=== PATIENT | male | born 1960 | race Caucasian/White ===

== ENCOUNTER 2017-11-21 12:22 | Observation (INO) ==
[2017-11-21] MEDS ORDERED: Nitroglycerin 0.4 MG TAB.SUBL SL ONE (12:32)
[2017-11-21] MEDS ORDERED: Aspirin 81 MG TAB.CHEW PO ONE (12:32)
--- NOTE | 2017-11-21 12:38 | Emergency Department Note ---
Disposition Clinical Impression: Chest pain, rule out acute myocardial infarction Disposition: Admitted As Inpatient Condition: Good Referrals: Edilma Santana CNP [Primary Care Provider] - Time of Disposition: 13:59 General Adult HPI - General Stated complaint: C/P & SOB Time Seen by Provider: 11/21/17 12:24 Source: patient Limitations: no limitations Nursing Notes Reviewed: Yes Vital Signs Reviewed: Yes - History of Present Illness HPI Narrative: Patient is a 49-year-old male that since the emergency department for chest pain. He states that he has been having chest pain for 1-1/2 weeks intermittently but had an episode last night and then again today while he was at work and states today he began to go into his jaw and into his left arm. States it has become nauseated and diaphoretic with his chest pain. States that he has a history of cardiac disease and has had had 2 stents placed 8 years ago patient also reports some shortness of breath with this episode. He states this feels very similar to previous cardiac events. Pain Scale: 3 - Related Data Home Medications Medication Instructions Recorded Confirmed amLODIPine [Norvasc] 2.5 mg PO DAILY 04/28/16 11/21/17 Sildenafil Citrate [Viagra] 100 mg PO AD PRN 04/07/17 11/21/17 Ubidecarenone [Co Q-10] 10 mg PO DAILY 04/07/17 11/21/17 Valacyclovir HCl [Valtrex] 2,000 mg PO Q12H PRN 04/07/17 11/21/17 Zolpidem [Ambien] 10 mg PO HS 04/07/17 11/21/17 DULoxetine [Cymbalta] 30 mg PO DAILY 11/21/17 11/21/17 Ezetimibe [Ezetimibe] 10 mg PO DAILY 11/21/17 11/21/17 Pantoprazole Sodium [Protonix] 40 mg PO DAILY 11/21/17 11/21/17 Previous Rx's Medication Instructions Recorded Aspirin 81 mg PO DAILY 30 Days tab.chew 06/05/16 Allergies Allergy/AdvReac Type Severity Reaction Status Date / Time chlorpheniramine AdvReac Hives Verified 11/07/17 15:50 [From Ornade] Nortriptyline [From Pamelor] AdvReac Palpitation Verified 11/07/17 15:50 s phenylpropanolamine AdvReac Hives Verified 11/07/17 15:50 [From Ornade] All systems ED: reviewed and negative except as stated. Cardiovascular: Reports: chest pain Respiratory: Reports: dyspnea Past Medical History - Past Medical History Medical history: Reports: non-contributory Surgical history: Reports: non-contributory, appendectomy, herniorrhaphy, other Psychiatric history: Reports: anxiety, depression - Social History Smoking Status: Never smoker Smokeless Tobacco Status: No Alcohol use: Reports: none Drug use: Reports: none Physical Exam - General Limitations: no limitations General appearance: alert, in no apparent distress - Head Head exam: atraumatic, normocephalic - Eye Eye exam: Present: normal appearance, EOMI - Neck Neck exam: Present: normal inspection, full ROM, trachea midline - Respiratory Respiratory exam: Present: normal lung sounds bilaterally. Absent: respiratory distress, wheezes - Cardiovascular Cardiovascular exam: Present: regular rate, normal rhythm, normal heart sounds, +S1, +S2 - Abdominal Exam Abdominal exam: Present: soft, Non-Tender, normal bowel sounds - Neurological Exam Neurological exam: Present: alert, oriented X3 - Psychiatric Psychiatric exam: Present: normal affect, normal mood - Skin Skin exam: Present: warm, dry, intact Course - Reevaluation(s) Reevaluation #1: The patient had recurrent chest pain after being given sublingual nitroglycerin. We will start a nitro drip on this patient. Time: 13:42 - Consultations Consultation #1: A call and spoke with the Dr. Mooney the on-call tank truck driver and informed her of this patient and his current symptoms. She valorie recommended against using heparin at this time due to their being no EKG changes or elevation in troponin. She stated that if there would end up being an EKG changes or elevation in troponin and we could start heparin. They have agreed with the management of starting a nitro drip. They stated they would see this patient in consult. Time: 13:46 Vital Signs Temperature 97.5 F L 11/21/17 12:32 Pulse Rate 87 11/21/17 12:32 Respiratory Rate 12 11/21/17 12:32 Blood Pressure 160/105 11/21/17 12:32 O2 Sat by Pulse Oximetry 99 11/21/17 12:32 Temperature 97.5 F L 11/21/17 12:32 Pulse Rate 87 11/21/17 12:32 Respiratory Rate 12 11/21/17 12:32 Blood Pressure 107/72 11/21/17 12:51 O2 Sat by Pulse Oximetry 99 11/21/17 12:32 Oxygen Delivery Oxygen Delivery Room Air Medical Decision Making - MDM Narrative Medical decision making narrative: Due the patient having chest pain we will do a CBC, BMP, troponin, chest x-ray EKG. Patient will also have a trial of nitroglycerin. Patient's chest pain improved with nitroglycerin however the pain returns we started the patient on a nitro drip. EKG showed no acute changes. The chest x-ray showed no acute cardial palmar process. The initial troponin was negative. The remainder of the patient's labs were unremarkable this time. Due to the patient's previous cardiac history and presenting symptoms and patient will need to be admitted to the hospital for further evaluation and management. I called and spoke to the hospitalist and they agreed to consult on this patient in the hospital. They recommended against starting a heparin drip at this time. I will call and speak with the hospitalist for admission to the hospital. I called spoke to the hospice and accepted the patient to their service. Patient will be admitted to the hospital for further evaluation and management this time. - Medical Records Medical records reviewed: Yes I reviewed the patient's medical records. - Lab Data Lab results reviewed: Yes I reviewed the patient's lab results. Result diagrams: 11/21/17 12:40 11/21/17 12:40 Lab Results 11/21/17 11/21/17 11/21/17 Range/Units 12:40 12:40 12:40 WBC 8.9 (4.3-11.1) K/mcL RBC 5.03 (4.19-5.50) M/mcL Hgb 15.6 (12.9-16.9) g/dL Hct 46.9 (37.5-50.1) % MCV 93.2 (83.0-100.0) fL MCH 31.0 (28.0-33.3) pg MCHC 33.3 (31.6-35.5) g/dL RDW 12.7 (11.5-14.5) % Plt Count 265 (140-400) K/mcL MPV 9.7 (9.4-12.4) fL Immature Gran % 0.3 (0-4) % Seg Neutrophils % 38.7 % Lymphocytes % 47.8 % Monocytes % 9.5 % Eosinophils % 3.2 % Basophils % 0.5 % Neutrophils # 3.4 (1.6-8.9) K/mcL Lymphocytes # 4.2 (0.6-4.6) K/mcL Monocytes # 0.8 (0.0-1.3) K/mcL Eosinophils # 0.3 (0.0-0.6) K/mcL Basophils # 0.0 (0.0-0.2) K/mcL PT 11.7 (9.4-12.1) Seconds INR 1.1 APTT 35.9 (26.0-36.0) Seconds Sodium (136-145) mEq/L Potassium (3.5-5.1) mEq/L Chloride (98-107) mEq/L Carbon Dioxide (23-29) mEq/L BUN (6-20) mg/dL Creatinine (0.70-1.30) mg/dL Est GFR ( Amer) (> 60) Est GFR (Non-Af Amer) (> 60) BUN/Creatinine Ratio (6-26) Glucose (70-105) mg/dL Calculated Osmolality (280-300) Calcium (8.6-10.3) mg/dL Troponin I (< 0.04) ng/mL B-Natriuretic Peptide 11 (Less than 100) pg/mL 11/21/17 11/21/17 Range/Units 12:40 12:40 WBC (4.3-11.1) K/mcL RBC (4.19-5.50) M/mcL Hgb (12.9-16.9) g/dL Hct (37.5-50.1) % MCV (83.0-100.0) fL MCH (28.0-33.3) pg MCHC (31.6-35.5) g/dL RDW (11.5-14.5) % Plt Count (140-400) K/mcL MPV (9.4-12.4) fL Immature Gran % (0-4) % Seg Neutrophils % % Lymphocytes % % Monocytes % % Eosinophils % % Basophils % % Neutrophils # (1.6-8.9) K/mcL Lymphocytes # (0.6-4.6) K/mcL Monocytes # (0.0-1.3) K/mcL Eosinophils # (0.0-0.6) K/mcL Basophils # (0.0-0.2) K/mcL PT (9.4-12.1) Seconds INR APTT (26.0-36.0) Seconds Sodium 137 (136-145) mEq/L Potassium 4.1 (3.5-5.1) mEq/L Chloride 100 (98-107) mEq/L Carbon Dioxide 28 (23-29) mEq/L BUN 11 (6-20) mg/dL Creatinine 1.10 (0.70-1.30) mg/dL Est GFR ( Amer) > 60 (> 60) Est GFR (Non-Af Amer) > 60 (> 60) BUN/Creatinine Ratio 10 (6-26) Glucose 112 H (70-105) mg/dL Calculated Osmolality 284 (280-300) Calcium 9.4 (8.6-10.3) mg/dL Troponin I < 0.03 (< 0.04) ng/mL B-Natriuretic Peptide (Less than 100) pg/mL - Radiology Data Radiology results reviewed: Yes I reviewed the patient's radiology results. Chest X-Ray 11/21/17 12:32 IMPRESSION: No acute cardiopulmonary process. D/ / 11/21/2017 13:07:48 Vinicio Sweeney MD / Rina Carter Interpreting Provider: Vinicio Sweeney MD - EKG Data EKG #1 EKG attestation: Yes I reviewed and interpreted this EKG. EKG results narrative: EKG showed sinus rhythm at a rate of 83 bpm, LA interval of 180, QRS duration of 92, QTC of 389. There is occasional PVCs but no STEMI noted on this EKG. This is compared to previous EKG on 06/04/16 which showed a sinus rhythm at a rate of 71 bpm. There is no acute changes noted between these 2 EKGs other than the occasional PVC. EKG #2 EKG attestation: Yes I reviewed and interpreted this EKG. EKG results narrative: Second EKG at 1314 showed a sinus rhythm with occasional PVCs. Rate of 82 bpm, LA interval of 184, QRS duration of 89, QTC of 411 with a normal axis. There is no acute changes noted from review his EKG. EKG #3 EKG attestation: Yes I reviewed and interpreted this EKG. EKG results narrative: EKG at 1339 shows sinus rhythm at a rate of 71 bpm, LA interval of 203, QRS duration of 77, QTC of 383. There are no PVCs noted on this EKG otherwise there is no acute changes noted between previous EKG. Critical Care Time Critical Care Time: Yes Total Critical Care Time: 35 Attestation: Critical care performed: Time is exclusive of separately billable procedures. Time includes: direct patient care, patient reassessment, coordination of patient care, interpretation of data (laboratory data, radiology data, and respiratory data), review of patient's medical records, medical consultation and documentation of patient care. Procedures included in critical care time: Procedures excluded from critical care time: Attestation Statement - Attestation Attestation: I, Meet Ramos DO, examined this patient [id number] and my medical decision-making was reviewed with Dr. Jonathon Araya, Resident Physician. I agree with the documented findings, disposition and treatment plan as described except to the extent set forth below. Please see my progress notes for details. 57-year-old male presents to emergency room with complaint of chest pain. Vital signs on presentation were stable. Patient is describing anginal equivalent. He has had symptoms like this in the past and he required catheterization. Initial EKG did not show any acute signs of myocardial infarction. Nitroglycerin trial is completed inpatient complete resolution of symptoms after 2 nitroglycerin. Repeat EKG is collected 30 minutes after arrival and again was normal in comparison to the previous. Patient had reemergence of the chest pain approximately 25 minutes after nitroglycerin was given. Patella determined nitric concern drip will be started. Repeat EKG is culture that time and again was normal. Consultation postop the on-call tank truck driver further recommendations. They recommended holding on heparin at this time but continuing with the nitroglycerin glycerin treatment. Patient's physical exam is otherwise unremarkable. Vital signs stable his symptoms of uncontrolled. Lungs are clear heart is regular. Abdomen is soft. Patient is alert oriented (sentences. Patient will be admitted for definitive evaluation of the echocardiogram, stress test, catheterization for the symptoms. Concern is noted that this is unstable angina based on the presentation symptoms and resolution with the appropriate medications. Patient will be discussed with the hospitalist for admission this time. Approximately 35 minutes of critical care participation treatment course. No other concerns or issues noted this time. Admission process to be established. See detailed recommendations the physical exam, medical intervention, medical decision-making and disposition and the resident physician's note [id number] Symptoms are controlled this time and nitroglycerin. No pain at the time of admission
[2017-11-21] MEDS ORDERED: *HR* Heparin 5,000 UNIT/ML VIAL IVP ONE (12:54)
[2017-11-21] MEDS ORDERED: *HR* Heparin 5,000 UNIT/ML VIAL IVP PRN ×2 (12:54)
[2017-11-21] MEDS ORDERED: Heparin 25,000 UNIT/500 ML D5W 25,000 UNIT/500 ML BAG IVC SCH (13:00)
[2017-11-21 13:01] LABS: Basophils % 0.5 %; Eosinophils # 0.3 K/mcL (0.0-0.6); Eosinophils % 3.2 %; Hematocrit 46.9 % (37.5-50.1); Hemoglobin 15.6 g/dL (12.9-16.9); Immature Granulocytes % 0.3 % (0-4); Lymphocytes # 4.2 K/mcL (0.6-4.6); Lymphocytes % 47.8 %; Mean Corpuscular HGB Conc 33.3 g/dL (31.6-35.5); Mean Corpuscular Volume 93.2 fL (83.0-100.0); Mean Platelet Volume 9.7 fL (9.4-12.4); Monocytes # 0.8 K/mcL (0.0-1.3); Monocytes % 9.5 %; Neutrophils # 3.4 K/mcL (1.6-8.9); Platelet Count 265 K/mcL (140-400); Red Blood Count 5.03 M/mcL (4.19-5.50); Red Cell Distribution Width 12.7 % (11.5-14.5); Segmented Neutrophils % 38.7 %
[2017-11-21 13:07] LABS: INR 1.1; Prothrombin Time 11.7 Seconds (9.4-12.1)
[2017-11-21 13:10] LABS: Activated Partial Thrombo Time 35.9 Seconds (26.0-36.0)
[2017-11-21] MEDS ORDERED: Nitroglycerin 1 INCH/GM PACKET TP ONE (13:18)
[2017-11-21 13:22] LABS: BUN/Creatinine Ratio 10 (6-26); Blood Urea Nitrogen 11 mg/dL (6-20); Calcium 9.4 mg/dL (8.6-10.3); Carbon Dioxide 28 mEq/L (23-29); Chloride 100 mEq/L (98-107); Glucose 112 mg/dL (70-105); Osmolality,Calculated 284 (280-300); Potassium 4.1 mEq/L (3.5-5.1); Sodium 137 mEq/L (136-145); eGFR For African Americans > 60 (> 60); eGFR For Non-African Americans > 60 (> 60)
[2017-11-21] MEDS ORDERED: Nitroglycerin 25 MG/250 ML INFUS..BTL IVC SCH (13:45)
[2017-11-21] MEDS ORDERED: *HR* Enoxaparin 80 MG/0.8 ML SYRINGE SQ ONE (14:35)
--- NOTE | 2017-11-21 14:36 | Event Note ---
Date of Encounter: 11/21/17 Time of Encounter: 14:35 Patient seen and examined with VP ANALYSIS. Unstable angina. Anti-ischemic medications. Appreciate cardiology input
[2017-11-21] MEDS ORDERED: Acetaminophen 325 MG TABLET PO PRN (14:47)
[2017-11-21] MEDS ORDERED: Ondansetron 4 MG/2 ML VIAL IVP PRN (14:47)
[2017-11-21] MEDS ORDERED: Naloxone 0.4 MG/ML INJ IVP PRN (14:47)
--- NOTE | 2017-11-21 15:01 | Internal Med History&Physical ---
Date of Encounter: 11/21/17 Time of Encounter: 14:59 Assessment and Plan (1) Unstable angina Current visit: No Status: Acute 1 patient has been experiencing intermittent chest pain off and on for past 2 weeks today he began to express chest pain radiating to his left arm and jaw. Associated symptoms of nausea diaphoresis and shortness of breath. He does have a past history of cardiac disease he did have 2 stents 2011 to the right coronary artery and first obtuse marginal branch of the circumflex artery in 2010. Repeat catheterization was performed in December 2012 which demonstrated patent stents. He did undergo a nuclear cardiac stress test in 2015 which was negative for any ischemia or infarct Echo performed 2016: VEF 60%. Normal left ventricular size and systolic function. There is evidence of moderate diastolic dysfunction of the left ventricle. Normal right ventricular size and function. No significant valvular dysfunction. IVC not well visualized for estimate of RVSP. No evidence for pulmonary hypertension by TR gradient, 18 mmHg. 2 First set of troponins are negative we will continue to trend 3 continue with nitroglycerin 4 we will hold on heparin for now unless troponin elevates or any changes in EKG 5 cardiology has been consulted-ER physician did speak with Dr. Mooney 6 continuous cardiac monitoring 7 continue with aspirin and Ezetimibe-patient does not tolerate statins-we will check lipid profile 8 patient unable to take metoprolol causes shortness of breath 9 nothing by mouth after midnight (2) GERD (gastroesophageal reflux disease) Current visit: No Status: Chronic Prilosec Qualifiers: Esophagitis presence: esophagitis presence not specified Qualified Code(s) : K21.9 - Gastro-esophageal reflux disease without esophagitis (3) Hypertension Current visit: No Status: Chronic Presently controlled we will continue with nitroglycerin, Norvasc Qualifiers: Hypertension type: essential hypertension Qualified Code(s): I10 - Essential (primary) hypertension (4) DVT prophylaxis Current visit: Yes Status: Acute [facility] Internal Medicine - H&P: HPI Chief complaint: CP Admitted From: Emergency Dept Plans for Post Hospital Care: Home History of present illness: Mr. Martinez is a 57 year old male past medical history of GERD GI bleed hyperlipidemia hypertension CAD with stents. According to the patient he has been experiencing intermittent chest pain for the past 2 weeks however he did have an episode of midsternal nonradiating chest pain last night again today while he was at work however at this time it radiated to his jaw and into his left arm. He does have associated symptoms of shortness of breath nausea and diaphoresis. He does have a past history of cardiac disease he did have 2 stents 2011 He presented to the ER with the above complaints he was given 2 nitroglycerin which did relieve his pain however pain returned after each nitroglycerin. He was initiated on nitroglycerin drip. Lab work was unremarkable troponin was negative EKG with no ST-T wave abnormalities. Ear physician did speak with cardiology who advised not to initiate heparin at this time since there is no changes in EKG or elevation in troponin. Patient has been admitted for further workup evaluation. Presently patient denies any chest pain and is hemodynamically stable Past Med Surg Social Fam HX - Past Medical History Medical history: non-contributory Psychiatric history: anxiety, depression - Past Surgical History Surgical History: non-contributory, appendectomy, herniorrhaphy, other - Social History Smoking Status: Never smoker Smokeless Tobacco Status: No Alcohol use: none Drug use: none - Family History Father Living Status: Hx Family Cardiac Disorders: Yes ([place]) Internal Medicine - H&P: Meds amLODIPine [Norvasc] 2.5 mg PO DAILY 04/28/16 [History] Aspirin 81 mg PO DAILY 30 Days tab.chew 06/05/16 [Rx] Sildenafil Citrate [Viagra] 100 mg PO AD PRN 04/07/17 [History] Ubidecarenone [Co Q-10] 10 mg PO DAILY 04/07/17 [History] Valacyclovir HCl [Valtrex] 2,000 mg PO Q12H PRN 04/07/17 [History] Zolpidem [Ambien] 10 mg PO HS 04/07/17 [History] DULoxetine [Cymbalta] 30 mg PO DAILY 11/21/17 [History] Ezetimibe [Ezetimibe] 10 mg PO DAILY 11/21/17 [History] Pantoprazole Sodium [Protonix] 40 mg PO DAILY 11/21/17 [History] 3 Allergy/AdvReac Type Severity Reaction Status Date / Time chlorpheniramine AdvReac Hives Verified 11/07/17 15:50 [From Ornade] Nortriptyline [From Pamelor] AdvReac Palpitation Verified 11/07/17 15:50 s phenylpropanolamine AdvReac Hives Verified 11/07/17 15:50 [From Ornade] All Systems PM: A 10-system review of systems was performed and is negative for pertinent findings except as documented above in the HPI. - Constitutional Constitutional: no chills, no fever(s), no night sweats - EENT Eyes: no change in vision, no discharge, no pain, no photophobia Ears: no ear discharge, no ear pain, no tinnitus Nose, mouth and throat: no dysphagia, no nasal discharge, no neck pain, no sore throat - Cardiovascular Cardiovascular ROS IM: chest pain, dyspnea - Respiratory Respiratory: dyspnea on exertion - Gastrointestinal Gastrointestinal: nausea - Musculoskeletal Musculoskeletal ROS IM: no numbness, no tingling - Integumentary Integumentary IM: no rash, no unusual bruising - Neurological Neurological ROS: no confusion, no convulsions, no focal weakness, no numbness, no tingling, no tremor(s) - Hematologic/Lymphatic Hematologic/Lymphatic: no easy bruising - Constitutional Vitals: Temp Pulse Resp BP Pulse Ox 97.5 F L 87 14 120/81 99 11/21/17 12:32 11/21/17 12:32 11/21/17 14:54 11/21/17 14:54 11/21/17 12:32 General appearance: Present: A&O X 3 - Head Head exam: Present: atraumatic, normocephalic - Eye Eye exam: Present: PERRL, conjuntiva pink, sclera anicteric Pupils: Present: PERRL - Neck Neck exam general surgery: Present: supple, trachea midline. Absent: lymphadenopathy - Respiratory Respiratory exam: Present: CTAB. Absent: accessory muscle use, rales, rhonchi, wheezes - Cardiovascular Cardiovascular exam: Present: RRR, +S1, +S2. Absent: diastolic murmur, gallop, rubs, systolic murmur - GI/Abdominal GI/Abdominal exam: Present: normal bowel sounds, soft, no peritoneal signs. Absent: distended, tenderness - Extremities Exam Extremities exam: Present: warm, radial pulses palpable and symmetrical. Absent : calf tenderness, cyanotic, pedal edema - Neurological Exam Neurological exam: Present: CN II-XII intact, oriented X3, no focal deficits. Absent: pronater drift, facial droop, speech deficit - Skin Skin exam: Present: dry, intact Internal Med - H&P Results - Labs CBC & Chem 7: 11/21/17 12:40 11/21/17 12:40
[2017-11-21] MEDS ORDERED: Pantoprazole 40 MG VIAL IVP ONE (22:28)
[2017-11-22 00:32] LABS: Basophils # 0.1 K/mcL (0.0-0.2); Basophils % 0.8 %; Eosinophils # 0.3 K/mcL (0.0-0.6); Eosinophils % 3.8 %; Hematocrit 45.1 % (37.5-50.1); Immature Granulocytes % 0.3 % (0-4); Lymphocytes # 3.3 K/mcL (0.6-4.6); Lymphocytes % 51.2 %; Mean Corpuscular HGB Conc 33.3 g/dL (31.6-35.5); Mean Corpuscular Hemoglobin 30.9 pg (28.0-33.3); Mean Corpuscular Volume 92.8 fL (83.0-100.0); Mean Platelet Volume 9.8 fL (9.4-12.4); Monocytes # 0.7 K/mcL (0.0-1.3); Monocytes % 10.6 %; Neutrophils # 2.2 K/mcL (1.6-8.9); Platelet Count 241 K/mcL (140-400); Red Blood Count 4.86 M/mcL (4.19-5.50); Red Cell Distribution Width 12.8 % (11.5-14.5); Segmented Neutrophils % 33.3 %
[2017-11-22 00:47] LABS: BUN/Creatinine Ratio 11 (6-26); Blood Urea Nitrogen 13 mg/dL (6-20); Calcium 9.2 mg/dL (8.6-10.3); Carbon Dioxide 30 mEq/L (23-29); Chloride 103 mEq/L (98-107); Glucose 108 mg/dL (70-105); Osmolality,Calculated 287 (280-300); Potassium 4.1 mEq/L (3.5-5.1); Sodium 138 mEq/L (136-145); eGFR For African Americans > 60 (> 60); eGFR For Non-African Americans > 60 (> 60)
[2017-11-22] MEDS ORDERED: (Ezetimibe [Ezetimibe] 10 MG) PO SCH (09:00)
[2017-11-22] MEDS: Aspirin 81 MG TAB.CHEW PO SCH (10:16)
--- NOTE | 2017-11-22 10:27 | Cardiology Consult Note ---
<Radha Paulson Stephanie - Last Filed: 11/22/17 10:36> Date of Encounter: 11/22/17 Time of Encounter: 10:00 Assessment and Plan (1) Unstable angina Current Visit: Yes Status: Acute Reports symptoms concerning for unstable angina for the past 2-3 months. Hx of CAD s/p PCI in 2010. Troponin negative. No ST/T wave changes noted on ECG. Presented with chest discomfort, improved with NTG tabs, pain recurred and patient was started on NTG gtt. Negative nuclear exercise stress test in 2015. TTE with normal LVEF June 2016. Recommend LH with possible PCI; alternatives, risks, and benefits discussed, he is agreeable to proceed. Continue asa. Intolerant to statin and betablocker. Pending outpt approval for repatha. Further recommendations to follow. (2) CAD (coronary artery disease), [place] coronary artery Current Visit: No Status: Chronic Hx of CAD s/p PCI. Most recent LHC 2012 demonstrated patent stents and otherwise mild, non- obstructive CAD. Exercise nuclear stress test 2015 negative for ischemia or infarct. EF preserved per TTE. Continue asa. Reportedly intolerant to betablocker (dyspnea). Statin intolerant- --pending repatha initiation as outpt if insurance will approve. Plan as above. Qualifiers: [place] vs. transplanted heart: [place] heart Associated angina: with unstable angina Qualified Code(s): I25.110 - Atherosclerotic heart disease of [place] coronary artery with unstable angina pectoris Discussion w patient/family: The assessment and plan as outlined above was discussed with the patient and/or family members who expressed understanding and agreement. All questions were answered. Thank you for involving us in the care of your patient. Please call with any questions. The patient will be discussed and reviewed with Dr. Long; changes to be made accordingly. History of Present Illness Consult date: 11/22/17 Requesting physician: Arabella Richards Consult reason: Chest pain Chief complaint: Chest pain History of present illness: Mr. Martinez is a 57 year old male with PMHx significant for CAD s/p PCI, GERD, and HTN who presented to the ED with complaints of chest pressure and shortness of breath. Symptoms worsen with exertion and improve with rest. Reports shortness of breath with minimal exertion for at least the past 2-3 months. Associated symptoms include significant fatigue. Reports pain improved with NTG tabs in the ED however recurred and then was started on IV NTG gtt. Reports similar presentation with prior NV. Troponin negative x3. No ST/T wave changes noted per ECG. Prior CV testing: Exercise nuclear 06/05/16: perfusion imaging negative for ischemia or infarct, exercise ECG negative for ischemia, normal hemodynamic response, chest tightness with peak exercise, gated EF=64% TTE 06/05/16: EF 60%, moderate LVDD, no significant valvular dysfunction, normal wall motion [facility] 12/2012: patent stent to OM1 and mRCA; otherwise mild, non-obstructive CAD (30% pLAD, 30% mLCx). Past Med Surg Social Fam HX - Past Medical History Attestation: Yes The following information was validated with the patient. Source: patient Medical history: coronary artery disease, GERD, hypertension Psychiatric history: anxiety, depression - Past Surgical History Surgical History: non-contributory, angioplasty/stent, appendectomy, herniorrhaphy - Social History Smoking Status: Never smoker Smokeless Tobacco Status: No Alcohol use: none Drug use: none - Family History Mother Living Status: Age at : 97 Hx Family Cardiac Disorders: Yes (3-4 stents placed due to some blockage, placed late into her life) Hx Family Respiratory Disorders: No Hx Family Cancer: No Hx Family GI Disorders: No Hx Family Genitourinary Disorders: No Hx Family Endocrine Disorder: No Hx Family Musculoskeletal Disorders: No Hx Family Neuromuscular Disorders: No Hx Family Neurologic Disorders: No Hx Family HEENT Disorders: No Hx Family Autoimmune Disorders: No Hx Family Reproductive Disorders: No Hx Family Psychosocial Disorders: No Father Living Status: Age at : 70 Cause of : Heart attack Hx Family Cardiac Disorders: Yes (NV) Hx Family Respiratory Disorders: No Hx Family Cancer: No Hx Family GI Disorders: Yes (Stomach issues) Hx Family Genitourinary Disorders: No Hx Family Endocrine Disorder: No Hx Family Musculoskeletal Disorders: No Hx Family Neuromuscular Disorders: No Hx Family Neurologic Disorders: No Hx Family HEENT Disorders: No Medications and Allergies amLODIPine [Norvasc] 2.5 mg PO DAILY 04/28/16 [History] Aspirin 81 mg PO DAILY 30 Days tab.chew 06/05/16 [Rx] Sildenafil Citrate [Viagra] 100 mg PO AD PRN 04/07/17 [History] Ubidecarenone [Co Q-10] 10 mg PO DAILY 04/07/17 [History] Valacyclovir HCl [Valtrex] 2,000 mg PO Q12H PRN 04/07/17 [History] Zolpidem [Ambien] 10 mg PO HS 04/07/17 [History] DULoxetine [Cymbalta] 30 mg PO DAILY 11/21/17 [History] Ezetimibe [Ezetimibe] 10 mg PO DAILY 11/21/17 [History] Pantoprazole Sodium [Protonix] 40 mg PO DAILY 11/21/17 [History] 3 Allergy/AdvReac Type Severity Reaction Status Date / Time chlorpheniramine AdvReac Hives Verified 11/07/17 15:50 [From Ornade] Nortriptyline [From Pamelor] AdvReac Palpitation Verified 11/07/17 15:50 s phenylpropanolamine AdvReac Hives Verified 11/07/17 15:50 [From Ornade] All Systems Review: A 10-system review of systems was performed and is negative for pertinent findings except as documented above in the HPI. - Cardiovascular Cardiovascular: as per HPI Physical Examination Vital Signs, Last 4 Hours Temp Pulse Resp BP Pulse Ox 11/22/17 06:38 97.7 F 62 14 134/81 98 General: Conversant, No Apparent Distress HEENT: Atraumatic, Normocephaly, Mucus Membranes Moist Neck: No JVD, Normal carotid pulses Cardiac: Reg Rate and Rhythm, Normal S1 and S2, No Murmur Lungs: Normal Breath Sounds, No Wheeze, Rales, Rhonchi Neuro: Alert and responsive, No focal deficits noted Abdomen: Soft, Non-Tender Skin: No rashes noted on visualized skin Musculoskeletal: No Chest Wall Tenderness Extremities: No Clubbing, No Cyanosis, No Edema, Normal Pulses Results 11/22/17 00:19 11/22/17 00:19 Lab Results 11/21/17 11/22/17 11/22/17 18:58 00:19 00:19 WBC 6.5 Hgb 15.0 Hct 45.1 Plt Count 241 Sodium Potassium Chloride Carbon Dioxide BUN Creatinine Glucose Calcium Troponin I < 0.03 < 0.03 11/22/17 00:19 WBC Hgb Hct Plt Count Sodium 138 Potassium 4.1 Chloride 103 Carbon Dioxide 30 H BUN 13 Creatinine 1.18 Glucose 108 H Calcium 9.2 Troponin I Active Medications Acetaminophen (Tylenol) 650 mg PO Q6HR PRN PRN Reason: Mild Pain (1-3) Stop: 05/23/18 14:48 Aspirin (Aspirin) 81 mg PO DAILY [facility] Stop: 05/24/18 09:01 Last Admin: 11/22/17 10:16 Dose: 81 mg Duloxetine HCl (Cymbalta) 30 mg PO DAILY [facility] Stop: 05/24/18 09:01 Last Admin: 11/22/17 10:16 Dose: 30 mg Nitroglycerin (Nitroglycerin Premix 25 Mg/250 Ml) 25 mg in 250 mls @ 3 mls/hr IVC .Q24H TORIBIO; 5 MCG/MIN PRN Reason: Protocol Stop: 05/23/18 13:46 Last Admin: 11/21/17 13:58 Dose: 5 mcg/min, 3 mls/hr Naloxone HCl (Narcan) 0.4 mg IVP Q2MIN PRN PRN Reason: Opioid Reversal Stop: 05/23/18 14:48 Omeprazole (Prilosec) 40 mg PO DAILY [facility] Stop: 05/24/18 09:01 Last Admin: 11/22/17 10:16 Dose: 40 mg Ondansetron HCl (Zofran) 4 mg IVP Q8HR PRN PRN Reason: Nausea And Vomiting Stop: 05/23/18 14:48 Pharmacy Profile Note (Patient Taking Own Medication) 0 each PO DAILY [facility] Stop: 05/24/18 09:01 Last Admin: 11/22/17 10:16 Dose: Not Given Zolpidem Tartrate (Ambien) 10 mg PO HS [facility] PRN Reason: Protocol Stop: 05/23/18 21:01 Last Admin: 11/21/17 22:41 Dose: 10 mg - Imaging and Cardiology Stress Test: report reviewed Echo: report reviewed Cardiac cath: report reviewed Other Results: 12 hour tele: avg HR=59 SR. PVCs. - EKG Interpretation EKG results cardiology: personally reviewed Consult Discharge Plan - Plan Referrals: Edilma Santana NETWORK DEVELOPMENT COORDINATOR [Primary Care Provider] - <Gustavo Long - Last Filed: 11/22/17 13:06> Date of Encounter: 11/22/17 - Attending Attestation I have personally performed a face to face evaluation on this patient. I have reviewed and agree with the care plan. History and Exam by me shows: Pt presents to ER with three day history of chest pain, mid epigastric, radiates into left jaw, provoked by exercise, relieved by rest, lasts ten to fifteen minutes, did not take ntg, associated with shortness of breath, relieved in ER with two sub lingual ntg and initiation of ntg drip. Pt reports pain is the same as he experienced before LHC/PCI. He can provoke the chest pain with exertion. IMP: 1. Chest pain consistent with previous anginal pain, now relieved, 2. CAD - previous LHC 2010, stent sites patent, unknown vessel, old records pending. 3. hypertension : adequate control on current meds. 4. hyperlipidemia - intolerate to three statins, fenofibrate, may be candidate for PCSK9 inhibitors. REC: Left heart cath possible, obtain old record, discussed risks and benefits, pt agrees to proceed. Assessment and Plan Discussion w patient/family: The assessment and plan as outlined above was discussed with the patient and/or family members who expressed understanding and agreement. All questions were answered. Thank you for involving us in the care of your patient. Please call with any questions. History of Present Illness History of present illness: Mr. Martinez is a 57 year old male All Systems Review: A 10-system review of systems was performed and is negative for pertinent findings except as documented above in the HPI. Physical Examination Vital Signs, Last 4 Hours Temp Pulse Resp BP Pulse Ox 11/22/17 10:38 97.8 F 65 14 124/90 94 Results 11/22/17 00:19 11/22/17 00:19 Lab Results 11/21/17 11/22/17 11/22/17 18:58 00:19 00:19 WBC 6.5 Hgb 15.0 Hct 45.1 Plt Count 241 Sodium Potassium Chloride Carbon Dioxide BUN Creatinine Glucose Calcium Troponin I < 0.03 < 0.03 11/22/17 00:19 WBC Hgb Hct Plt Count Sodium 138 Potassium 4.1 Chloride 103 Carbon Dioxide 30 H BUN 13 Creatinine 1.18 Glucose 108 H Calcium 9.2 Troponin I
--- NOTE | 2017-11-22 10:42 | Pre-Sedation Evaluation ---
Pre-sedation evaluation - Pre-sedation checklist Date of procedure: 11/22/17 Procedure: [facility] Recent Vitals: Last Vital Signs Temp 97.8 F 11/22/17 10:38 Pulse 65 11/22/17 10:38 Resp 14 11/22/17 10:38 BP 124/90 11/22/17 10:38 Pulse Ox 94 11/22/17 10:38 H&P (including ROS) documented in medical record: Yes Previous reaction to sedatives/anesthetics: No Dietary Status: NPO after Midnight Dentition: No loose teeth or bridges ASA Classification *see protocol: CLASS II-Mild systemic disease Plan of Care: Pt appropriate candidate for procedure/moderate/conscious sedation
--- NOTE | 2017-11-22 11:07 | Internal Med Progress Note ---
<Mil Pacheco - Last Filed: 11/22/17 17:42> Date of Encounter: 11/22/17 Time of Encounter: 11:05 - Assessment and plan (1) Unstable angina Current Visit: Yes Status: Acute Assessment and plan: - Patient described left chest pain with radiation to left arm and jaw at rest, relieved with nitroglycerin - Strong family history of coronary artery disease - Previous cardiac workup including left heart catheterization 2010 with placement of 2 stents - EKG demonstrating no acute changes, troponin trended and negative - Cardiology consulted and following, appreciate recommendations - Patient to undergo left heart catheterization this afternoon Plan - We will continue to monitor patient and await results of left heart catheterization - Continue beta tommy, aspirin, ezitimibe on discharge per cardiology (2) Chest pain Current Visit: Yes Status: Acute Assessment and plan: As above Qualifiers: Chest pain type: unspecified Qualified Code(s): R07.9 - Chest pain, unspecified (3) Hypertension Current Visit: Yes Status: Chronic Assessment and plan: Well controlled at this time at 134/81 Continue home meds Qualifiers: Hypertension type: essential hypertension Qualified Code(s): I10 - Essential (primary) hypertension (4) Dyslipidemia Current Visit: Yes Status: Chronic Assessment and plan: Patient is intolerant to statin therapy Cardiology to consider ezetimibe discharge, per note (5) CAD (coronary artery disease), [place] coronary artery Current Visit: Yes Status: Chronic Assessment and plan: As above for unstable angina Qualifiers: [place] vs. transplanted heart: [place] heart Associated angina: with unstable angina Qualified Code(s): I25.110 - Atherosclerotic heart disease of [place] coronary artery with unstable angina pectoris (6) GERD (gastroesophageal reflux disease) Current Visit: Yes Status: Chronic Assessment and plan: Patient complains of increased reflux symptoms during the past couple of weeks - Chest pain more likely related to cardiac - We will continue to monitor and continue home meds Qualifiers: Esophagitis presence: esophagitis presence not specified Qualified Code(s) : K21.9 - Gastro-esophageal reflux disease without esophagitis (7) DVT prophylaxis Current Visit: Yes Status: Acute Assessment and plan: SCDs - Time Spent With Patient 25 - 35 minutes - Subjective Interval history: Patient seen and examined at bedside this morning. He states that this morning he is asymptomatic with no complaints of chest pain, shortness of breath, nausea , vomiting, fevers, chills. He describes the onset of chest pain while driving located in the left chest with radiation into the left arm and left jaw. He states that this episode lasted for about 3-4 minutes but he did continue to have a dull pain in the same area which was relieved with nitroglycerin in the emergency department. He has been having some discomfort and malaise for the last 3-4 days but has been hesitant about going to the emergency department. He also states he has a very significant past family history for cardiac disease. He has never had a myocardial infarction but he did have a heart catheter with stent placement in the right coronary artery which was occluded and 97% per patient in 2010. - Constitutional Vitals: Temp Pulse Resp BP Pulse Ox 97.8 F 65 14 124/90 94 11/22/17 10:38 11/22/17 10:38 11/22/17 10:38 11/22/17 10:38 11/22/17 10:38 General appearance: Present: A&O X 3 Exam: Gen.: Vitals noted. No acute distress. AAOx3 HEENT: PERRL/EOMI, oropharynx clear, Normocephalic, atraumatic Cardiac: RRR, no murmur, +S1/S2 Pulmonary: CTA bilaterally, no wheezes, rales or rhonchi, equal chest expansion Abdomen: soft, nontender, BS noted, no guarding MSK: ROM intact, no joint swelling noted Extremities: no BLE edema, nontender calf, no cyanosis or clubbing Neuro: A&Ox3, moves all extremities, no focal deficits Psych: Appropriate mood and behavior Internal Medicine: Result - Labs CBC & Chem 7: 11/22/17 00:19 11/22/17 00:19 Labs: Short CBC 11/22/17 Range/Units 00:19 WBC 6.5 (4.3-11.1) K/mcL Hgb 15.0 (12.9-16.9) g/dL Hct 45.1 (37.5-50.1) % Plt Count 241 (140-400) K/mcL Neutrophils # 2.2 (1.6-8.9) K/mcL BMP 11/22/17 00:19 Sodium 138 Potassium 4.1 Chloride 103 Carbon Dioxide 30 H BUN 13 Creatinine 1.18 Glucose 108 H Calcium 9.2 Cardiac Enzymes 11/21/17 11/22/17 Range/Units 18:58 00:19 Troponin I < 0.03 < 0.03 (< 0.04) ng/mL - ABG Interpretation ABG results: PT/INR, D-dimer PT 11.7 Seconds (9.4-12.1) 11/21/17 12:40 Consult Discharge Plan - Plan Referrals: Max,Edilma Brown CNP [Primary Care Provider] - <Abdirizak Coughlin - Last Filed: 11/22/17 19:01> Date of Encounter: 11/22/17 - Assessment and plan (1) CAD (coronary artery disease), [place] coronary artery Current Visit: Yes Status: Chronic Qualifiers: [place] vs. transplanted heart: [place] heart Associated angina: with unstable angina Qualified Code(s): I25.110 - Atherosclerotic heart disease of [place] coronary artery with unstable angina pectoris (2) Dyslipidemia Current Visit: Yes Status: Chronic (3) GERD (gastroesophageal reflux disease) Current Visit: Yes Status: Chronic Qualifiers: Esophagitis presence: esophagitis presence not specified Qualified Code(s) : K21.9 - Gastro-esophageal reflux disease without esophagitis (4) Hypertension Current Visit: Yes Status: Chronic Qualifiers: Hypertension type: essential hypertension Qualified Code(s): I10 - Essential (primary) hypertension - Constitutional Vitals: Temp Pulse Resp BP Pulse Ox 97.8 F 72 16 143/94 98 11/22/17 15:03 11/22/17 17:35 11/22/17 17:35 11/22/17 17:35 11/22/17 17:35 Internal Medicine: Result - Labs CBC & Chem 7: 11/22/17 00:19 11/22/17 00:19 Labs: Short CBC 11/22/17 Range/Units 00:19 WBC 6.5 (4.3-11.1) K/mcL Hgb 15.0 (12.9-16.9) g/dL Hct 45.1 (37.5-50.1) % Plt Count 241 (140-400) K/mcL Neutrophils # 2.2 (1.6-8.9) K/mcL BMP 11/22/17 00:19 Sodium 138 Potassium 4.1 Chloride 103 Carbon Dioxide 30 H BUN 13 Creatinine 1.18 Glucose 108 H Calcium 9.2 Cardiac Enzymes 11/21/17 11/22/17 Range/Units 18:58 00:19 Troponin I < 0.03 < 0.03 (< 0.04) ng/mL - ABG Interpretation ABG results: PT/INR, D-dimer PT 11.7 Seconds (9.4-12.1) 11/21/17 12:40 - Impressions Impressions Echocardiogram 11/22/17 14:57 Impressions: LVEF 60%. Normal LV chamber size and function. Mild concentric left ventricular hypertrophy. Mild left ventricular diastolic dysfunction. Normal right ventricular structure and function. No evidence of pulmonary hypertension. No significant valvular dysfunction. LVEF 60-65%. Left Ventricular Wall Motion: Rest Echo Findings All wall segments showed normal motion. Findings: Study Quality * Technically adequate exam. ECG Findings * Normal sinus rhythm. Left Ventricle * LVEF 60-65%. * Normal LV chamber size and function. * Mild concentric left ventricular hypertrophy. * Mild left ventricular diastolic dysfunction. Right Ventricle * Normal right ventricular structure and function. Left Atrium * Mildly dilated left atrium. Right Atrium * Normal right atrial size. Interatrial Septum * Interatrial septum not well evaluated. Aortic Valve * Trileaflet aortic valve with normal function. * No aortic regurgitation. * No aortic stenosis. Mitral Valve * Mild mitral annular calcification. * Trace mitral regurgitation. * No mitral stenosis. Tricuspid Valve * Normal tricuspid valve structure and function. * Trace tricuspid regurgitation. * No evidence of pulmonary hypertension. Pulmonic Valve * Normal pulmonic valve structure and function. * No pulmonic regurgitation. Aorta * Normally sized aortic root. Pericardium * The pericardium appears normal. IVC * The IVC is not well evaluated. Pulmonary Artery * Normal visualized portions of the main pulmonary artery. - Attending Attestation I examined this patient and my medical decision-making was reviewed with the Resident Physician on 11/22/17. I agree with the documented findings, disposition and treatment plan as described except to the extent set forth below. Mr Martinez is currently in observation for acute [place]. He is to have cardiac cath today. Mr Martinez is still having some chest heaviness. No fever. Some dyspnea. Cath today. Exam Alert. Mild distress Heart reg No wheeze Abd soft I/P 1. [place] 2. CAD Further diagnoses and plan as above.
[2017-11-22] MEDS ORDERED: *HR* Heparin 10,000 UNIT/10 ML VIAL ONE (12:19)
[2017-11-22] MEDS ORDERED: Nitroglycerin 1,000 MCG/10 ML VIAL IV ONE (12:19)
[2017-11-22] MEDS ORDERED: 0.9 % Sodium Chloride 1,000 ML ONE (12:19)
[2017-11-22] MEDS ORDERED: Heparin 1,000 UNITS/500 mL 500 ML ONE (12:19)
[2017-11-22] MEDS ORDERED: ISOVUE-370 200 ML INFUS..BTL IV ONE (12:32)
[2017-11-22] MEDS ORDERED: *HR* Midazolam HCl 2 MG/2 ML VIAL ONE (12:59)
[2017-11-22] MEDS ORDERED: *HR* FentaNYL (PF) 100 MCG/2 ML VIAL ONE (12:59)
[2017-11-22] MEDS ORDERED: Tirofiban 12.5 MG/250ML 12.5 MG/250 ML BAG ONE (13:27)
--- NOTE | 2017-11-22 14:18 | Invasive Diagnostic Lab Proc ---
Name: Ildefonso Martinez Date of Study: 11/22/2017 Date: 1960 Ht: 72.0in Medical Record#: [id number] Age: 57 Wt: 169.76lb Gender: Male BSA: 1.99 Order #: [id number] BMI: 22.99 Physicians Procedure Physician: Neel Artis MD Referring MD: Referring MD: Staff Name Position Time In Nhung Conte RT (R) Scrub 01:00 PM Renaldo Hays RN Digital Strategy Director 01:00 PM Syd Lee RN Monitor 01:00 PM Indications Indication Unstable Angina Procedures Performed Procedure L HRT ARTERY/VENTRICLE ANGIO PRQ CARDIAC ANGIOPLAST 1 ART PRQ CARDIAC ANGIO ADDL ART Pre-Procedure Checklist Informed consent is complete signed and on chart. H&P is on chart. ID band is on and ID verified with patient. Patient NPO for procedure The procedure was described for the patient and questions were answered. Blood Pressure: 124/90 ECG is on chart. Plan of Care Patient will tolerate the procedure without complications. Adequate level of comfort will be maintained. Hemodynamics will remain stable Patient will recover from procedure without complications. Respiratory function will be maintained. Cardiac rhythm will remain stable. Patient temperature will be maintained. Patient and/or family have verbalized understanding of the procedure. Patient Education Chief Complaint/Reason for Test: Cardiac Cath Developmental Category: Adult (18-64 years) Developmentally Appropriate for Age: Yes Learning Barriers: None Education Needs: Procedure Education Method: Verbal Information Taught: Cardiac Cath Educational Evaluation: Able to repeat information Intravenous Access Time IV Size Location DC'd Fluid/Drip Rate Units RN 18g 1 11/04" Patent On Arrival Rt Antecubital 0.9NaCl ml/hr Allergies ORNADE Vital Signs Time BP (mmHg) HR (bpm) O2 Sat. RR (bpm) LOC 12:49 PM / % 5 = Fully awake and oriented or at pre-proc level 01:01 PM / % 5 = Fully awake and oriented or at pre-proc level 01:05 PM 158 / 107 60 100 % 8 01:10 PM 149 / 112 84 100 % 01:15 PM 158 / 86 69 100 % 12 01:20 PM 150 / 93 73 100 % 34 01:25 PM 152 / 105 91 100 % 17 01:30 PM 151 / 93 82 99 % 17 01:35 PM 154 / 95 76 100 % 18 01:40 PM 161 / 92 72 100 % 23 01:45 PM 155 / 95 70 100 % 26 01:50 PM 155 / 107 72 100 % 25 Procedural Medications Time Medication Dose Units Method Given By 01:01 PM Oxygen 2 L/min nasal cannula Renaldo Hays RN 01:02 PM Versed 1 mg Intravenous Renaldo Hays RN 01:02 PM Fentanyl 50 mcg Intravenous Tyree Artis MD 01:16 PM Lidocaine 2% 10 ml Subcutaneous Neel Artis MD 01:25 PM Heparin 3500 units Intravenous Renaldo Hays RN 01:32 PM Aggrastat Bolus: 37.5 ml Intravenous Renaldo Hays RN 01:32 PM Aggrastat 12.5mg/250ml 13.5 ml/hr Intravenous Renaldo Hays RN 01:50 PM Fentanyl 50 mcg Intravenous Renaldo Hays RN 01:50 PM Plavix 600 mg Orally Renaldo Hays RN ASA Classification: CLASS II- Mild systemic disease (i.e. well-controlled diabetes, hypertension, asthma, cigarette smoking) Dwain Score Preprocedure Postprocedure Activity 2- Moves 4 extremities sustained head lift Activity 2- Moves 4 extremities sustained head lift Circulation 2- SBP +/= 20 points of pre-anesthetic level Circulation 2- SBP +/= 20 points of pre-anesthetic level Consciousness 2- Awake and alert oriented x 3 Consciousness 2- Awake and alert oriented x 3 O2 Saturation 2- Able to maintain O2 satruation of 92% on room air O2 Saturation 2- Able to maintain O2 satruation of 92% on room air Respiratory 2- Able to deep breathe and cough well Respiratory 2- Able to deep breathe and cough well Total Score 10 Total Score 10 Contrast Agent: Isovue Diagnostic Contrast: 168 ml Total Contrast: 168 ml Fluoro Dose: 492 mGy Procedure Log Time Note Enter By 01:00 PM Pt arrived to labor economist 2 at 12:59 [email or web address] 01:00 PM Nhung Conte RT (R) Position: Scrub Time in: 13:00 [email or web address] 01:00 PM Renaldo Hays RN Position: Digital Strategy Director Time in: 13:00 [email or web address] 01:01 PM Syd Lee RN Position: Monitor Time in: 13:00 [email or web address] 01:01 PM Patient charges- Angio tray pack, Navilyst 3mm J, Pulse Oximetry and ACIST tubing and transducer [email or web address] : PM Physician arrived 13:3 : PM Rene and alonso completed elle: PM Sign in performed according to hospital policy. [email or web address] : PM Procedure start 13:elle3 : PM Case Delayed No 3 : PM Hair removed from procedure site in holding area using clippers. Bilateral groin prepped with Chloraprep by Nhung Conte (R), safety strap applied then patient was draped. Skin intact. [email or web address] : PM Time: 13: Oxygen on at 2 L/min per nasal cannula by Renaldo Hays RN [email or web address] : PM Time: 13:01 Patient comfortable and pain free: Yes [email or web address] : PM Time: 13:LOC: 5 = Fully awake and oriented or at pre-proc level [email or web address] : PM Clinical Presentation: Unstable angina [email or web address] : PM Time: 13:02 Versed 1 mg Intravenous Given by Renaldo Hays RN [email or web address] 01:02 PM Time: 13:02 Fentanyl 50 mcg Intravenous Given by Tyree Artis MD [email or web address] :03 PM Vitals capture started with the following parameters, Patient=Adult, Interval=5 min, Initial Vsxvzxrf=765 mmHg, Deflation Rate=5 mmHg, Cuff placed on Right Arm 01:03 PM CathStat 01:04 PM Recorded ECG: HR=64 Condition=Condition 1 :04 PM Vitals capture started with the following parameters, Patient=Adult, Interval=5 min, Initial Fbexhdvm=053 mmHg, Deflation Rate=5 mmHg, Cuff placed on Right Arm 01:04 PM Recorded ECG: HR=62 Condition=Condition 1 01:05 PM HR=60 bpm, ZOGH=199/107 mmhg, RtP1=713.0 %, Resp=8 B/min, Comment=NSR 01:08 PM Pressure channel 1 zeroed. 01:09 PM Recorded ECG: HR=74 Condition=Condition 1 01:10 PM HR=84 bpm, GFES=718/112 mmhg, VyM9=915.0 %, Comment=nsr 01:11 PM ASA Class CLASS II- Mild systemic disease (i.e. well-controlled diabetes, hypertension, asthma, cigarette smoking) [email or web address] 01:15 PM HR=69 bpm, ICPM=109/86 mmhg, FdL4=299.0 %, Resp=12 B/min, Comment=nsr 01:16 PM Time out performed according to hospital policy [email or web address] 01:16 PM Time: 13:16 10 ml Lidocaine 2% to right groin Subcutaneous Given by Neel Artis MD [email or web address] 01:17 PM Micro-Introducer Kit utilized for sheath placement [email or web address] 01:17 PM 3 ml contrast injected to right femoral artery. Image obtained. [email or web address] 01:18 PM Access obtained by percutaneous puncture. 6Fr 10cm Terumo [place] sheath placed in right Femoral artery. [id number] [email or web address] 01:18 PM 5Fr FR 4 catheter inserted over the wire DN [email or web address] 01:19 PM Recorded Pressure: LV, HR=72, Condition=Condition 1 (Left Ventricle) LV 150/10/12 01:19 PM Recorded Pressure: LV, Ao, HR=73, Condition=Condition 1 (Left Ventricle) LV 151/11/13, (Aorta) Ao 151/96/120 01:20 PM RCA angiography performed in multiple views. [email or web address] 01:20 PM HR=73 bpm, BAMH=630/93 mmhg, ZrC1=895.0 %, Resp=34 B/min, Comment=nsr 01:21 PM Recorded Pressure: Ao, HR=84, Condition=Condition 1 (Aorta) Ao 163/103/129 01:21 PM Catheter removed [email or web address] 01:21 PM 5Fr FL 4 catheter inserted over the wire [facility] jcallihan 01:22 PM LCA angiography performed in multiple views. [email or web address] 01:23 PM Recorded Pressure: Ao, HR=67, Condition=Condition 1 (Aorta) Ao 147/89/115 01:24 PM Coronary Dominance: Left [email or web address] 01:25 PM HR=91 bpm, FSQR=025/105 mmhg, TfQ4=890.0 %, Resp=17 B/min, Comment=nsr 01:25 PM Catheter removed [email or web address] 01:28 PM Time: 13:25 Heparin 3500 units Intravenous Given by Renaldo Hays RN [email or web address] 01:28 PM Lesion found in Mid RCA. Pre Stenosis: 95 Pre DELROY Flow: 3: Complete and Brisk Flow/Perfusion [email or web address] 01:29 PM Right Coronary, Right Posterior Descending Arteries with Right Posterolateral and Acute Marginal branches with 95 % stenosis. If graft is supplying this area, 0 % stenosis [email or web address] :29 PM PCI Status Urgent [email or web address] 01:29 PM PCI Indication: PCI for high risk Non-STEMI or unstable angina jcallihan :29 PM 6Fr JR 4 Runway guide catheter was used to cannulate the PCI vessel successfully. reused? No [email or web address] 01:30 PM .014 [employer] [place] 190cm guide wire across target lesion- successful. reused? No [email or web address] 01:30 PM Inflation device was opened. [email or web address] 01:30 PM HR=82 bpm, LFOV=772/93 mmhg, SpO2=99.0 %, Resp=17 B/min, Comment=nsr 01:31 PM 1.5 mm x 12 mm Mini Trek Rx balloon across target lesion- successful. reused? No [email or web address] 01:32 PM Time: 13:32 Aggrastat Bolus: 37.5 ml Intravenous Given by Renaldo Hays RN Stern pump [email or web address] 01:33 PM Time: 13:32 Aggrastat 12.5mg/250ml 13.5 ml/hr Intravenous Given by Renaldo Hays RN Stern pump [email or web address] 01:34 PM Balloon inflated @ 10 abena for 8 seconds [email or web address] 01:34 PM Balloon inflated @ 12 abena for 8 seconds [email or web address] 01:34 PM Balloon catheter removed intact. [email or web address] 01:34 PM Recorded Pressure: Ao, HR=75, Condition=Condition 1 (Aorta) Ao 157/91/120 01:35 PM HR=76 bpm, MSDW=507/95 mmhg, JaO9=339.0 %, Resp=18 B/min, Comment=nsr 01:36 PM 2.0 mm x 12 mm Emerge Monorail balloon across target lesion- successful. reused? No [email or web address] 01:37 PM Balloon inflated @ 9 abena for 10 seconds [email or web address] 01:37 PM Balloon inflated @ 10 abena for 6 seconds [email or web address] 01:38 PM Balloon inflated @ 12 abena for 17 seconds [email or web address] 01:39 PM Balloon catheter removed intact. [email or web address] 01:40 PM HR=72 bpm, MFMG=407/92 mmhg, JxL8=073.0 %, Resp=23 B/min, Comment=nsr 01:42 PM ballon catheter, emerge, re-inserted. [email or web address] 01:43 PM Balloon inflated @ 6 abena for 9 seconds [email or web address] 01:44 PM Balloon inflated @ 6 abena for 8 seconds [email or web address] 01:45 PM HR=70 bpm, BDXB=142/95 mmhg, BjG3=031.0 %, Resp=26 B/min, Comment=nsr 01:45 PM Balloon catheter removed intact. [email or web address] 01:45 PM Guide catheter removed intact. [email or web address] 01:45 PM Guide wire removed intact. [email or web address] 01:48 PM Procedure completed at 13:48 [email or web address] 01:48 PM Sign out completed: Radiation Dose 492 mGy Fluoro Time: 10.6 Isovue 370 - 200ml contrast 168 ml given by Neel Artis MD. Complications: NoneCardiac Rehab Consult needed: YesConfirmed administered medications: Yes [email or web address] 01:48 PM Isovue 370 - 200ml,1 Bottle(s) used. [email or web address] 01:49 PM Arterial sheath pulled, Angio-seal closure device used and was Successful [id number] S/N. [email or web address] 01:50 PM HR=72 bpm, QRFG=600/107 mmhg, RsB0=790.0 %, Resp=25 B/min, Comment=nsr 01:50 PM Time: 13:50 Fentanyl 50 mcg Intravenous Given by Renaldo Hays RN [email or web address] 01:52 PM Time: 13:50 Plavix 600 mg Orally Given by Renaldo Hays RN [email or web address] 01:54 PM Estimated Blood Loss: less than 20cc [email or web address] 01:54 PM Post ECG NSR [email or web address] 01:54 PM Post Blood Pressure 155/95 [email or web address] 01:54 PM 13:54 Post Pulses Bilateral DP & PT 2+ [email or web address] 01:55 PM Information taught Cardiac Cath, Angioseal, and CARPENTER PROTOTYPE [email or web address] 01:55 PM Education needs Procedure, Plan of Care, and Responsibilities of Patient in Care [email or web address] 01:55 PM Learning barriers :None [email or web address] 01:55 PM Education Methods Verbal [email or web address] 01:55 PM Education evaluation Able to repeat information [email or web address] 01:55 PM Site status No bleeding/hematoma - Rt Groin as reported by Nhung Conte RT (R) at 13:55 [email or web address] 01:56 PM Opsite applied [email or web address] 01:56 PM Report given to 2NE RN Pt taken to 2NE Room #27. 13:56 [email or web address] 01:56 PM Plavix, Effient or Brilinta given Yes [email or web address] 01:56 PM Family placed in consult room. [email or web address] 01:56 PM Complications: None [email or web address] 01:56 PM Fluoro Time: 10.6 [email or web address] 01:56 PM Isovue 370 - 200ml contrast 168 ml given by Neel Artis MD. [email or web address] 01:56 PM Radiation Dose 492 mGy [email or web address] 01:57 PM Patient out of room: 13:57 [email or web address] 02:02 PM Coronary Dominance: Left [email or web address] 02:04 PM Lesion found in Mid LAD. Pre Stenosis: 60 Pre DELROY Flow: [email or web address] 02:04 PM Lesion found in Proximal Circumflex. Pre Stenosis: 60 Pre DELROY Flow: [email or web address] 02:07 PM Lesion found in 1st RPL. Pre Stenosis: 75 Pre DELROY Flow: 3: Complete and Brisk Flow/Perfusion [email or web address] Complications Complication None None Hemodynamics Pressures Site Systolic/A Wave Diastolic/V Wave Mean LV 150 10 12 LV 151 11 13 AO 151 96 120 AO 163 103 129 AO 147 89 115 AO 157 91 120 Post Procedure Information Blood Pressure: 155/95 mmHg Rhythm: NSR Post procedural instructions were given Closure Device Time Device Success/Fail 11/22/2017 2:07:00 PM Angio-Seal VIP Successful Site Checks Time Location Status Staff Sheath In? Note 01:55 PM Rt Groin No bleeding/hematoma Nhung Conte RT (R) Pulses Time Site Pre-Procedure Post-Procedure Note 11/22/2017 12:48:00 PM Bilateral DP & PT 2+ 1:54:00 PM Bilateral DP & PT 2+ Updated by Syd Lee RN on 11/22/2017 2:10:03 PM electronically signed on 11/22/2017 2:11:17 PM with status of Final
[2017-11-22] MEDS: Loratadine 10 MG TABLET PO SCH (16:44)
[2017-11-23 04:49] LABS: Hematocrit 43.4 % (37.5-50.1); Hemoglobin 14.6 g/dL (12.9-16.9); Mean Corpuscular HGB Conc 33.6 g/dL (31.6-35.5); Mean Corpuscular Hemoglobin 30.9 pg (28.0-33.3); Mean Corpuscular Volume 91.8 fL (83.0-100.0); Mean Platelet Volume 9.8 fL (9.4-12.4); Platelet Count 222 K/mcL (140-400); Red Blood Count 4.73 M/mcL (4.19-5.50); Red Cell Distribution Width 12.5 % (11.5-14.5)
[2017-11-23 05:00] LABS: BUN/Creatinine Ratio 10 (6-26); Blood Urea Nitrogen 10 mg/dL (6-20); eGFR For African Americans > 60 (> 60); eGFR For Non-African Americans > 60 (> 60)
[2017-11-23 05:01] LABS: BUN/Creatinine Ratio 11 (6-26); Blood Urea Nitrogen 10 mg/dL (6-20); Calcium 8.7 mg/dL (8.6-10.3); Carbon Dioxide 29 mEq/L (23-29); Chloride 104 mEq/L (98-107); Glucose 110 mg/dL (70-105); Osmolality,Calculated 286 (280-300); Potassium 4.2 mEq/L (3.5-5.1); Sodium 138 mEq/L (136-145); eGFR For African Americans > 60 (> 60); eGFR For Non-African Americans > 60 (> 60)
[2017-11-23] MEDS: Aspirin 81 MG TAB.CHEW PO SCH (09:09)
[2017-11-23] MEDS: Loratadine 10 MG TABLET PO SCH (09:09)
--- NOTE | 2017-11-23 09:45 | Cardiology Progress Note ---
Date of Encounter: 11/23/17 Time of Encounter: 08:45 Assessment and Plan (1) Unstable angina Current Visit: Yes Status: Acute Reports symptoms concerning for unstable angina for the past 2-3 months. Hx of CAD s/p PCI in 2010. Troponin negative. No ST/T wave changes noted on ECG. S/p [facility] 11/23/17 for unstable angina- PTCA to the mRCA and 1st RPL. There was a 60 % stenosis in the mLAD and 60% stenosis in the pLCX artery remaining. There was no complication from the procedure. Denies recurrent chest pain. No complications from right femoral access site. Importance of DAPT with asa and plavix uninterrupted for minimum of one year discussed and he voiced understanding. He is intolerant to statin and bb. He is in the process of being set-up for repatha in the out-pt setting. Activity restrictions reviewed. No lifting over 10 lbs for one week. No tub baths for a week. No driving for a week. Out-pt f/u in 1-2 weeks in the cardiology office. Cardiology signing off. Call with questions. (2) CAD (coronary artery disease), [place] coronary artery Current Visit: Yes Status: Chronic Hx of CAD s/p PCI. S/p PCI with PTCA to the mRCA and 1st RPL. Patent mRCA stent. Moderate disease otherwise. EF preserved per TTE. Continue asa and plavix. Reportedly intolerant to betablocker (dyspnea). Statin intolerant---pending repatha initiation as outpt if insurance will approve. Plan as above. Qualifiers: [place] vs. transplanted heart: [place] heart Associated angina: with unstable angina Qualified Code(s): I25.110 - Atherosclerotic heart disease of [place] coronary artery with unstable angina pectoris Discussion w patient/family: The assessment and plan as outlined above was discussed with the patient and/or family members who expressed understanding and agreement. All questions were answered. Thank you for involving us in the care of your patient. Please call with any questions. Subjective Principal diagnosis: CAD Interval history: No complications from procedure yesterday. Reports he is breathing better. C/o couple seconds of chest discomfort when bending over. Otherwise no recurrent pain. Objective Vital Signs, Last 4 Hours Temp Pulse Resp BP Pulse Ox 11/23/17 06:29 97.8 F 73 14 129/95 95 General: Conversant, No Apparent Distress HEENT: Atraumatic, Normocephaly, Mucus Membranes Moist Neck: No JVD, Normal carotid pulses Cardiac: Reg Rate and Rhythm, Normal S1 and S2, No Murmur Lungs: Normal Breath Sounds, No Wheeze, Rales, Rhonchi Neuro: Alert and responsive, No focal deficits noted Abdomen: Soft, Non-Tender Skin: No rashes noted on visualized skin Musculoskeletal: No Chest Wall Tenderness Extremities: No Clubbing, No Cyanosis, No Edema, Normal Pulses, Other (Right groin with small amount ecchymosis. No hematoma, redness, or drainage.) Results 11/23/17 04:17 11/23/17 04:17 Lab Results 11/23/17 11/23/17 11/23/17 04:17 04:17 04:17 WBC 7.0 Hgb 14.6 Hct 43.4 Plt Count 222 Sodium Potassium Chloride Carbon Dioxide BUN 10 Creatinine 1.01 Glucose Calcium Troponin I < 0.03 11/23/17 04:17 WBC Hgb Hct Plt Count Sodium 138 Potassium 4.2 Chloride 104 Carbon Dioxide 29 BUN 10 Creatinine 0.95 Glucose 110 H Calcium 8.7 Troponin I - Imaging and Cardiology Cardiac cath: report reviewed Consult Discharge Plan - Plan Referrals: Edilma Santana CNP [Primary Care Provider] -
[2017-11-23 10:14] VITALS: BP 130/84
--- NOTE | 2017-11-23 10:23 | Discharge Summary ---
<TaraMil - Last Filed: 11/23/17 10:20> Date of Encounter: 11/23/17 Time of Encounter: 10:20 - Discharge Diagnosis (1) Unstable angina Priority: Primary Status: Acute (2) Chest pain Priority: Secondary Status: Acute Qualifiers: Chest pain type: unspecified Qualified Code(s): R07.9 - Chest pain, unspecified (3) Hypertension Priority: Secondary Status: Chronic Qualifiers: Hypertension type: essential hypertension Qualified Code(s): I10 - Essential (primary) hypertension (4) Dyslipidemia Priority: Secondary Status: Chronic (5) CAD (coronary artery disease), [place] coronary artery Priority: Secondary Status: Chronic Qualifiers: [place] vs. transplanted heart: [place] heart Associated angina: with unstable angina Qualified Code(s): I25.110 - Atherosclerotic heart disease of [place] coronary artery with unstable angina pectoris (6) GERD (gastroesophageal reflux disease) Priority: Secondary Status: Chronic Qualifiers: Esophagitis presence: esophagitis presence not specified Qualified Code(s) : K21.9 - Gastro-esophageal reflux disease without esophagitis (7) DVT prophylaxis Priority: Secondary Status: Acute - Discharge Medications Prescriptions: Clopidogrel [Plavix] 75 mg PO DAILY #30 tablet Home Medications: amLODIPine [Norvasc] 2.5 mg PO DAILY 04/28/16 [History] Aspirin 81 mg PO DAILY 30 Days tab.chew 06/05/16 [Rx] Sildenafil Citrate [Viagra] 100 mg PO AD PRN 04/07/17 [History] Ubidecarenone [Co Q-10] 10 mg PO DAILY 04/07/17 [History] Valacyclovir HCl [Valtrex] 2,000 mg PO Q12H PRN 04/07/17 [History] Zolpidem [Ambien] 10 mg PO HS 04/07/17 [History] DULoxetine [Cymbalta] 30 mg PO DAILY 11/21/17 [History] Ezetimibe 10 mg PO DAILY 11/21/17 [History] Pantoprazole Sodium [Protonix] 40 mg PO DAILY 11/21/17 [History] Clopidogrel [Plavix] 75 mg PO DAILY #30 tablet 11/23/17 [Rx] Allergies/Adverse Reactions: 3 Allergy/AdvReac Type Severity Reaction Status Date / Time chlorpheniramine AdvReac Hives Verified 11/07/17 15:50 [From Ornade] Nortriptyline [From Pamelor] AdvReac Palpitation Verified 11/07/17 15:50 s phenylpropanolamine AdvReac Hives Verified 11/07/17 15:50 [From Ornade] Procedures/tests Complete & Pending: Procedures Performed prior 72 hours Category Date Time Status CL Cardiac Catheterization [CL] Routine Lock And Dam Repairer 11/22/17 10:25 Completed ECG 12 lead ECG [ECG] AM 0600 Y 11/23/17 06:00 Ordered ECG 12 lead ECG [ECG] Stat Y 11/22/17 14:02 Ordered EV echocardiogram Routine Y 11/22/17 14:57 Completed Date of admission: 11/21/17 14:11 Primary care physician: Edilma Santana CNP Consults: 11/21/17 14:57 Consult to Cardiology [CONS] Routine Comment: Consulting Provider: Kae Diamond Reason for Consult: cp Time Notified: 14:57 Call Completed: No 11/22/17 14:02 Consult to Cardiac Rehabilitation-Phase1 [CONS] Routine Comment: Reason for Consult: post op PCI Call Completed: Yes Discharging clinician: Mil Pacheco Anticipated date of discharge: 11/23/17 - Patient Status Disposition: Home, Self-Care Condition: Good Functional capacity at discharge: independent ambulation Overall status at discharge: patient is back to baseline - Discharge Instructions Instructions: Chest Pain (DC), Chronic Hypertension (DC) Follow Up With: Radha Paulson CNP [Partnered Physician] - (office will call patient at home with appointment date and time) Edilma Santana CNP [Primary Care Provider] - 12/01/17 2:00 pm Forms: ED Satisfaction Letter Additional Instructions: Please follow-up through primary care physician upon discharge. And follow-up with cardiology in 1-2 weeks. No heavy lifting over 10 pounds for 1 week, no tubs or baths for 1 week. No driving for one week. Do not take your Viagra while taking nitrates. Please take all medications as prescribed and return to the emergency department for return of symptoms. - Diet and Activity Activity: increase activity as tolerated, resume usual activities as tolerated Diet: low salt diet Hospital course: Mr. Martinez is a 57 year old male with past medical history of CAD with 2 stents in 2010 since the emergency room with chief complaint of left-sided chest pain with radiation to his left arm and left jaw. This occurred at rest and was partially relieved with nitroglycerin. As an emergency room significant for mildly high blood pressure and 160/105, otherwise within normal limits. Labs within normal limits including troponin. Cardiology was consulted and patient was admitted for further evaluation of unstable angina. Course possible stay, patient gradually improved. Troponin was trending and remained negative. Cardiology performed left heart catheterization without stent placement. Patient had successful PTCA of mid RCA and first RPL and was struck at follow-up with cardiology in 1-2 weeks. Patient states that his pain has greatly improved and is currently symptomatically. Labs and vitals remained within normal limits. Patient will be discharged home in stable medical condition instructed to follow-up with his primary care physician and construction equipment operator. He will be sent home on a prescription of Plavix addition to his aspirin. Instructed to return to emergency department for any worsening of symptoms. - Time Spent with Patient Total time spent providing and/or coordinating discharge services: - Constitutional Vitals: Temp Pulse Resp BP Pulse Ox 98.3 F 73 14 130/84 95 11/23/17 10:11 11/23/17 10:11 11/23/17 10:11 11/23/17 10:11 11/23/17 10:11 General appearance: Present: A&O X 3 Exam: Gen.: Vitals noted. No acute distress. AAOx3 HEENT: PERRL/EOMI, oropharynx clear, Normocephalic, atraumatic Cardiac: RRR, no murmur, +S1/S2 Pulmonary: CTA bilaterally, no wheezes, rales or rhonchi, equal chest expansion Abdomen: soft, nontender, BS noted, no guarding MSK: ROM intact, no joint swelling noted Extremities: no BLE edema, nontender calf, no cyanosis or clubbing Neuro: A&Ox3, moves all extremities, no focal deficits Psych: Appropriate mood and behavior <Abdirizak Coughlin - Last Filed: 11/23/17 15:43> Date of Encounter: 11/23/17 - Discharge Diagnosis (1) Unstable angina Status: Acute (2) CAD (coronary artery disease), [place] coronary artery Priority: Primary Status: Chronic Qualifiers: [place] vs. transplanted heart: [place] heart Associated angina: with unstable angina Qualified Code(s): I25.110 - Atherosclerotic heart disease of [place] coronary artery with unstable angina pectoris (3) Dyslipidemia Status: Chronic (4) GERD (gastroesophageal reflux disease) Status: Chronic Qualifiers: Esophagitis presence: esophagitis presence not specified Qualified Code(s) : K21.9 - Gastro-esophageal reflux disease without esophagitis (5) Hypertension Status: Chronic Qualifiers: Hypertension type: essential hypertension Qualified Code(s): I10 - Essential (primary) hypertension Procedures/tests Complete & Pending: Procedures Performed prior 72 hours Category Date Time Status CL Cardiac Catheterization [CL] Routine Lock And Dam Repairer 11/22/17 10:25 Completed ECG 12 lead ECG [ECG] AM 0600 Y 11/23/17 06:00 Ordered ECG 12 lead ECG [ECG] Stat Y 11/22/17 14:02 Ordered EV echocardiogram Routine Y 11/22/17 14:57 Completed Date of admission: 11/21/17 14:11 Primary care physician: Edilma Santana CNP Consults: 11/21/17 14:57 Consult to Cardiology [CONS] Routine Comment: Consulting Provider: Kae Diamond Reason for Consult: cp Time Notified: 14:57 Call Completed: No 11/22/17 14:02 Consult to Cardiac Rehabilitation-Phase1 [CONS] Routine Comment: Reason for Consult: post op PCI Call Completed: Yes Hospital course: Mr. Martinez is a 57 year old male - Time Spent with Patient Total time spent providing and/or coordinating discharge services: - Constitutional Vitals: Temp Pulse Resp BP Pulse Ox 98.3 F 73 14 130/84 95 11/23/17 10:11 11/23/17 10:11 11/23/17 10:11 11/23/17 10:11 11/23/17 10:11 - Attending Attestation I examined this patient and my medical decision-making was reviewed with the Resident Physician on 11/23/17. I agree with the documented findings, disposition and treatment plan as described except to the extent set forth below. Mr Martinez has been in observation for [place]. He had PTCA yesterday and is feeling better today. He is afebrile with stable vitals and ready for discharge today. Exam Alert. Comfortable Mucus membranes dry Heart reg No wheeze Abd soft Plan D/C home today.
--- NOTE | 2017-11-24 07:54 | Electrocardiograph Report ---
[place] [address] Test Date: 2017-11-21 Pat Name: Ildefonso Martinez Department: 104 Room: 2NE27 Gender: M Global President: : 1960 Requested By: Jonathon Araya Order Number: [id number] Reading MD: Brian Faria MD Measurements Intervals [place] Rate: 71 P: 14 CO: 203 QRS: 6 QRSD: 77 T: 32 QT: 360 QTc: 383 Interpretive Statements SINUS RHYTHM Electronically Signed On 11-24-2017 6:34:13 EST by Brian Faria MD
--- NOTE | 2017-11-24 07:54 | Electrocardiograph Report ---
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
--- NOTE | 2017-11-24 08:19 | Electrocardiograph Report ---
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
== END 2017-11-23 12:55 | disposition home or self-care (01) ==
LOC: 2SOUTHHOLD 12:22 → EMEROO 12:22 → SUATTDRO 14:11 → 2SOUTHHOLD 14:56 → 2NENU 19:57
PROVIDERS: ADMIT Hospitalist; ATTEND Internal Medicine

== ENCOUNTER 2017-11-27 03:07 | Observation (INO) ==
--- NOTE | 2017-11-27 03:51 | Emergency Department Note ---
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 He states that approximate 1 hour prior to arrival he felt like he had decreased vision and a sparkling sensation in his vision. He states that since then his vision has been improving and he has developed a headache. Patient also states that he has had some strange sensation in his mouth. He denies it being numb in his mouth but states that he feels like he was hit in the mouth. Patient denies any numbness, weakness or tingling anywhere in his body. Patient denies ever having anything like this in the past. Patient states that his vision has been improving. Pain Scale: 0 - Related Data Home Medications Medication Instructions Recorded Confirmed amLODIPine [Norvasc] 2.5 mg PO DAILY 04/28/16 11/21/17 Sildenafil Citrate [Viagra] 100 mg PO AD PRN 04/07/17 11/21/17 Ubidecarenone [Co Q-10] 10 mg PO DAILY 04/07/17 11/21/17 Valacyclovir HCl [Valtrex] 2,000 mg PO Q12H PRN 04/07/17 11/21/17 Zolpidem [Ambien] 10 mg PO HS 04/07/17 11/21/17 DULoxetine [Cymbalta] 30 mg PO DAILY 11/21/17 11/21/17 Ezetimibe 10 mg PO DAILY 11/21/17 11/21/17 Pantoprazole Sodium [Protonix] 40 mg PO DAILY 11/21/17 11/21/17 Previous Rx's Medication Instructions Recorded Aspirin 81 mg PO DAILY 30 Days tab.chew 06/05/16 Clopidogrel [Plavix] 75 mg PO DAILY #30 tablet 11/23/17 Allergies Allergy/AdvReac Type Severity Reaction Status Date / Time chlorpheniramine AdvReac Hives Verified 11/27/17 03:11 [From Ornade] Nortriptyline [From Pamelor] AdvReac Palpitation Verified 11/27/17 03:11 s phenylpropanolamine AdvReac Hives Verified 11/27/17 03:11 [From Ornade] All systems ED: reviewed and negative except as stated. Eyes: Reports: vision change Musculoskeletal: Reports: other (Strange sensation around his mouth.) Past Medical History - Past Medical History Medical history: Reports: coronary artery disease, GERD, hypertension Surgical history: Reports: non-contributory, angioplasty/stent, appendectomy, herniorrhaphy Psychiatric history: Reports: anxiety, depression - Social History Smoking Status: Never smoker Smokeless Tobacco Status: No Alcohol use: Reports: none Drug use: Reports: none Physical Exam - General Limitations: no limitations General appearance: alert, in no apparent distress - Head Head exam: atraumatic, normocephalic - Eye Eye exam: Present: normal appearance, EOMI - Neck Neck exam: Present: normal inspection, full ROM, trachea midline - Respiratory Respiratory exam: Present: normal lung sounds bilaterally. Absent: respiratory distress, wheezes - Cardiovascular Cardiovascular exam: Present: regular rate, normal rhythm, normal heart sounds, +S1, +S2 - Abdominal Exam Abdominal exam: Present: soft, Non-Tender, normal bowel sounds - Neurological Exam Neurological exam: Present: alert, oriented X3, CN II-XII intact - Expanded Neurological Exam Speech: Present: fluid speech Cranial nerves: EOM function (II, III, IV, ): Normal, facial sensation (V): Normal, facial palsy (VII): Normal, gag reflex (IX): Normal, spinal accessory function (XI): Normal, tongue deviation (XII): Normal Cerebellar function: finger to nose: Normal, heel to kaur: Normal Motor strength - LUE: 5/5 Motor strength - RUE: 5/5 Motor strength - LLE: 5/5 Motor strength - RLE: 5/5 Upper motor neuron exam: pronator drift: Absent bilaterally Sensory exam upper extremity: light touch: Normal Sensory exam lower extremity: light touch: Normal Coma Scale Eye Opening: Spontaneous Coma Scale Motor Response: Obeys Commands Coma Scale Verbal Response: Oriented Coma Scale Total: 15 - Psychiatric Psychiatric exam: Present: normal affect, normal mood - Skin Skin exam: Present: warm, dry, intact Course Vital Signs Temperature 98.8 F 11/27/17 03:08 Pulse Rate 66 11/27/17 03:08 Respiratory Rate 20 11/27/17 03:08 Blood Pressure 180/96 11/27/17 03:08 O2 Sat by Pulse Oximetry 100 11/27/17 03:08 Temperature 98.8 F 11/27/17 03:08 Pulse Rate 59 11/27/17 06:01 Respiratory Rate 16 11/27/17 06:01 Blood Pressure 111/75 11/27/17 06:01 O2 Sat by Pulse Oximetry 98 11/27/17 06:01 Oxygen Delivery Oxygen Delivery Room Air Medical Decision Making - MDM Narrative Medical decision making narrative: Due the patient's presenting symptoms we will obtain a CBC, BMP, troponin, chest x-ray, EKG and a CT of the head patient will also be given a dose of Benadryl and Reglan here in the emergency department for his headache. CT of the head showed no acute intracranial abnormality. The troponin was negative. The remainder the patient's lab test was unremarkable. There is concern that the patient may have had a TIA due to the patient having changes in his vision as well as an aunt sensation around his mouth. There has been resolution of the patient's symptoms. However I still feel that the patient needs to be admitted to the hospital for further evaluation and management due to their being at increased risk for potential stroke within the first 24 hours after a possible TIA. I called spoke to hospitalist name except the patient does service. The patient will be admitted to the hospital for further evaluation and management. - Medical Records Medical records reviewed: Yes I reviewed the patient's medical records. - Lab Data Lab results reviewed: Yes I reviewed the patient's lab results. Result diagrams: 11/27/17 04:07 11/27/17 04:07 Lab Results 11/27/17 11/27/17 11/27/17 Range/Units 04:07 04:07 04:07 WBC 6.5 (4.3-11.1) K/mcL RBC 4.33 (4.19-5.50) M/mcL Hgb 13.6 (12.9-16.9) g/dL Hct 39.7 (37.5-50.1) % MCV 91.7 (83.0-100.0) fL MCH 31.4 (28.0-33.3) pg MCHC 34.3 (31.6-35.5) g/dL RDW 12.6 (11.5-14.5) % Plt Count 233 (140-400) K/mcL MPV 10.0 (9.4-12.4) fL Immature Gran % 0.3 (0-4) % Seg Neutrophils % 37.8 % Lymphocytes % 46.9 % Monocytes % 10.6 % Eosinophils % 3.8 % Basophils % 0.6 % Neutrophils # 2.5 (1.6-8.9) K/mcL Lymphocytes # 3.1 (0.6-4.6) K/mcL Monocytes # 0.7 (0.0-1.3) K/mcL Eosinophils # 0.3 (0.0-0.6) K/mcL Basophils # 0.0 (0.0-0.2) K/mcL PT 11.4 (9.4-12.1) Seconds INR 1.1 APTT 36.2 H (26.0-36.0) Seconds Sodium 137 (136-145) mEq/L Potassium 3.8 (3.5-5.1) mEq/L Chloride 104 (98-107) mEq/L Carbon Dioxide 27 (23-29) mEq/L BUN 13 (6-20) mg/dL Creatinine 0.88 (0.70-1.30) mg/dL Est GFR ( Amer) > 60 (> 60) Est GFR (Non-Af Amer) > 60 (> 60) BUN/Creatinine Ratio 15 (6-26) Glucose 98 (70-105) mg/dL Calculated Osmolality 284 (280-300) Calcium 8.7 (8.6-10.3) mg/dL Troponin I (< 0.04) ng/mL 11/27/17 Range/Units 04:07 WBC (4.3-11.1) K/mcL RBC (4.19-5.50) M/mcL Hgb (12.9-16.9) g/dL Hct (37.5-50.1) % MCV (83.0-100.0) fL MCH (28.0-33.3) pg MCHC (31.6-35.5) g/dL RDW (11.5-14.5) % Plt Count (140-400) K/mcL MPV (9.4-12.4) fL Immature Gran % (0-4) % Seg Neutrophils % % Lymphocytes % % Monocytes % % Eosinophils % % Basophils % % Neutrophils # (1.6-8.9) K/mcL Lymphocytes # (0.6-4.6) K/mcL Monocytes # (0.0-1.3) K/mcL Eosinophils # (0.0-0.6) K/mcL Basophils # (0.0-0.2) K/mcL PT (9.4-12.1) Seconds INR APTT (26.0-36.0) Seconds Sodium (136-145) mEq/L Potassium (3.5-5.1) mEq/L Chloride (98-107) mEq/L Carbon Dioxide (23-29) mEq/L BUN (6-20) mg/dL Creatinine (0.70-1.30) mg/dL Est GFR ( Amer) (> 60) Est GFR (Non-Af Amer) (> 60) BUN/Creatinine Ratio (6-26) Glucose (70-105) mg/dL Calculated Osmolality (280-300) Calcium (8.6-10.3) mg/dL Troponin I < 0.03 (< 0.04) ng/mL - Radiology Data Radiology results reviewed: Yes I reviewed the patient's radiology results. Head CT 11/27/17 03:43 IMPRESSION: No acute intracranial process identified. D/ / Isai Lopez MD / Isai Lopez MD Interpreting Provider: Isai Lopez MD - EKG Data EKG #1 EKG attestation: Yes I reviewed and interpreted this EKG. EKG results narrative: EKG showed sinus bradycardia at a rate of 51 bpm, ID interval of 198, QRS duration of 89, QTC of 388. This was compared to previous EKG on 11/23/17 which showed sinus rhythm at a rate of 72 bpm. Attestation Statement - Attestation Attestation: I examined this patient and my medical decision-making was reviewed with the Resident Physician. I agree with the documented findings, disposition and treatment plan as described except to the extent set forth below. Patient presents to the ED complaining of vision change and numbness to the right side of the face. The patient's symptoms began 1 hour prior to his arrival he was playing his guitar. He states he could not see anything the left side of his vision out of both eyes. He states he had numbness around the corner of his right mouth. He states his vision still feels off. He can see everything at this time. He still has tingling to the right side of his mouth but it is not numb anymore. He has a headache. On exam he is awake and alert and moving everything. Sensation intact. No visual field deficits. NIH scale is 0. Plan. Patient's NIH is 0. He would not be a candidate for TPA. The symptoms have rapidly improved. He is describing migrainous-type symptoms, however he has no history of migraine and will be rare to present with this at the age of 57. He has risk factors for stroke. We will admit for TIA workup
[2017-11-27] MEDS ORDERED: Metoclopramide 10 MG/2 ML VIAL IVP ONE (03:55)
[2017-11-27 04:22] LABS: Basophils % 0.6 %; Eosinophils # 0.3 K/mcL (0.0-0.6); Eosinophils % 3.8 %; Hematocrit 39.7 % (37.5-50.1); Hemoglobin 13.6 g/dL (12.9-16.9); Immature Granulocytes % 0.3 % (0-4); Lymphocytes # 3.1 K/mcL (0.6-4.6); Lymphocytes % 46.9 %; Mean Corpuscular HGB Conc 34.3 g/dL (31.6-35.5); Mean Corpuscular Hemoglobin 31.4 pg (28.0-33.3); Mean Corpuscular Volume 91.7 fL (83.0-100.0); Monocytes # 0.7 K/mcL (0.0-1.3); Monocytes % 10.6 %; Neutrophils # 2.5 K/mcL (1.6-8.9); Platelet Count 233 K/mcL (140-400); Red Blood Count 4.33 M/mcL (4.19-5.50); Red Cell Distribution Width 12.6 % (11.5-14.5); Segmented Neutrophils % 37.8 %
[2017-11-27 04:29] LABS: INR 1.1; Prothrombin Time 11.4 Seconds (9.4-12.1)
[2017-11-27 04:31] LABS: Activated Partial Thrombo Time 36.2 Seconds (26.0-36.0)
[2017-11-27 04:46] LABS: BUN/Creatinine Ratio 15 (6-26); Blood Urea Nitrogen 13 mg/dL (6-20); Calcium 8.7 mg/dL (8.6-10.3); Carbon Dioxide 27 mEq/L (23-29); Chloride 104 mEq/L (98-107); Glucose 98 mg/dL (70-105); Osmolality,Calculated 284 (280-300); Potassium 3.8 mEq/L (3.5-5.1); Sodium 137 mEq/L (136-145); eGFR For African Americans > 60 (> 60); eGFR For Non-African Americans > 60 (> 60)
[2017-11-27] MEDS ORDERED: Naloxone 0.4 MG/ML INJ IVP PRN ×2 (07:11→07:33)
[2017-11-27] MEDS ORDERED: Ondansetron 4 MG/2 ML VIAL IVP PRN (07:33)
[2017-11-27] MEDS ORDERED: *HR* HYDROcodone/Acet 5/325 mg TABLET PO PRN (07:33)
[2017-11-27] MEDS ORDERED: Acetaminophen 325 MG TABLET PO PRN (07:33)
--- NOTE | 2017-11-27 07:54 | Internal Med History&Physical ---
Date of Encounter: 11/27/17 Time of Encounter: 07:54 Assessment and Plan (1) TIA (transient ischemic attack) Current visit: Yes Status: Acute The patient presented with acute visual abnormalities including seen abnormal lines, flushes, left visual field deficits. These resolved prior to evaluation. Head CT is unremarkable Recent echocardiogram on the 22 of November is unremarkable EKG sinus We will give the patient high-dose aspirin stent Obtain brain MRI, uncorrected Doppler of the neck The patient has intolerance of statins. Continue home ezetimibe Patient has no speech deficits and passed a bedside swallow test. Cardiac diet. Neurology evaluation. No current indication for physical therapy or occupational therapy review. Qualifiers: Transient cerebral ischemia type: amaurosis fugax Qualified Code(s): G45.3 - Amaurosis fugax (2) Hypertension Current visit: Yes Status: Chronic Continue home medications. Qualifiers: Hypertension type: essential hypertension Qualified Code(s): I10 - Essential (primary) hypertension (3) Dyslipidemia Current visit: Yes Status: Chronic Lipid panel done November 19 shows uncontrolled dyslipidemia. The patient claims irritated. Bladder with the use of statins. Continue current ezetimibe (4) CAD (coronary artery disease), [place] coronary artery Current visit: Yes Status: Chronic Patient with coronary artery disease, status post stent placement 2 on November 22. No current chest pain. Echocardiogram done during that admission noted. Continue aspirin, and Plavix. Per cardiology, patient has intolerance of beta blockers and statins. Qualifiers: [place] vs. transplanted heart: [place] heart Associated angina: with unstable angina Qualified Code(s): I25.110 - Atherosclerotic heart disease of [place] coronary artery with unstable angina pectoris (5) Anxiety associated with depression Current visit: Yes Status: Chronic Continue home medications. (6) DVT prophylaxis Current visit: Yes Status: Acute ") Subcutaneousheparin after MRI. (7) GERD (gastroesophageal reflux disease) Current visit: Yes Status: Chronic Continue home medications. Qualifiers: Esophagitis presence: esophagitis presence not specified Qualified Code(s) : K21.9 - Gastro-esophageal reflux disease without esophagitis Internal Medicine - H&P: HPI Chief complaint: Abnormal vision Admitted From: Home Plans for Post Hospital Care: Home History of present illness: Mr. Martinez is a 57 year old male follow-up coronary artery disease with stents placed, stents within the past week, and 2 stents in the remote past. He also has hyperlipidemia and hypertension. The patient presented 40 minutes after he noted abnormal position of his left eye at home. He reports initially seen zigzag lines in his left visual field and subsequently while en route to the hospital completely resolution of his left hip. The patient reports associated headaches during that time. And associated perioral numbness. All his symptoms have resolved at the time of review. He did not meet the requirement due to resolution of his symptoms prior to arrival at the ER. He denies speech deficits, motor deficits. He has no sensory loss. He denies a history of migraine headaches, he denies illicit drug use, his blood pressure has been mostly controlled. He denies chest, respiratory, gastrointestinal urology, or urologic symptoms. He is hemodynamically and clinically stable with no neurologic deficits at my time of evaluation. Past Med Surg Social Fam HX - Past Medical History Medical history: coronary artery disease, GERD, hypertension Psychiatric history: anxiety, depression - Past Surgical History Surgical History: non-contributory, angioplasty/stent, appendectomy, herniorrhaphy - Social History Smoking Status: Former smoker Smokeless Tobacco Status: No Alcohol use: none Drug use: none - Family History Mother Living Status: Hx Family Cardiac Disorders: Yes (3-4 stents placed due to some blockage, placed late into her life) Hx Family Respiratory Disorders: No Hx Family Cancer: No Hx Family GI Disorders: No Hx Family Endocrine Disorder: No Hx Family Neuromuscular Disorders: No Hx Family Neurologic Disorders: No Hx Family HEENT Disorders: No Hx Family Autoimmune Disorders: No Father Living Status: Hx Family Cardiac Disorders: Yes ([place]) Hx Family Respiratory Disorders: No Hx Family Cancer: No Hx Family GI Disorders: Yes (Stomach issues) Hx Family Endocrine Disorder: No Hx Family Neuromuscular Disorders: No Hx Family Neurologic Disorders: No Hx Family HEENT Disorders: No Internal Medicine - H&P: Meds amLODIPine [Norvasc] 2.5 mg PO DAILY 04/28/16 [History] Aspirin 81 mg PO DAILY 30 Days tab.chew 06/05/16 [Rx] Sildenafil Citrate [Viagra] 100 mg PO AD PRN 04/07/17 [History] Ubidecarenone [Co Q-10] 10 mg PO DAILY 04/07/17 [History] Valacyclovir HCl [Valtrex] 2,000 mg PO Q12H PRN 04/07/17 [History] Zolpidem [Ambien] 10 mg PO HS 04/07/17 [History] DULoxetine [Cymbalta] 30 mg PO DAILY 11/21/17 [History] Ezetimibe 10 mg PO DAILY 11/21/17 [History] Pantoprazole Sodium [Protonix] 40 mg PO DAILY 11/21/17 [History] Clopidogrel [Plavix] 75 mg PO DAILY #30 tablet 11/23/17 [Rx] 3 Allergy/AdvReac Type Severity Reaction Status Date / Time chlorpheniramine AdvReac Hives Verified 11/27/17 03:11 [From Ornade] Nortriptyline [From Pamelor] AdvReac Palpitation Verified 11/27/17 03:11 s phenylpropanolamine AdvReac Hives Verified 11/27/17 03:11 [From Ornade] All Systems PM: A 10-system review of systems was performed and is negative for pertinent findings except as documented above in the HPI. - Constitutional Constitutional: no chills, no fever(s), no night sweats - EENT Eyes: loss of vision, no change in vision, no discharge, no pain, no photophobia Nose, mouth and throat: no dysphagia, no nasal discharge, no neck pain, no sore throat - Cardiovascular Cardiovascular ROS IM: no chest pain, no diaphoresis, no dyspnea, no lightheadedness, no palpitations, no syncope - Respiratory Respiratory: no cough, no dyspnea, no wheezing, no excessive phlegm production - Gastrointestinal Gastrointestinal: no abdominal pain, no diarrhea, no hematemesis, no hematochezia, no melena, no nausea, no vomiting - Musculoskeletal Musculoskeletal ROS IM: no numbness, no tingling - Integumentary Integumentary IM: no rash, no unusual bruising - Neurological Neurological ROS: as per HPI - Hematologic/Lymphatic Hematologic/Lymphatic: as per HPI - Constitutional Vitals: Temp Pulse Resp BP Pulse Ox 97.7 F 57 18 124/80 98 11/27/17 06:46 11/27/17 06:46 11/27/17 06:46 11/27/17 06:46 11/27/17 06:46 General: Alert and oriented, well appearing. Mental Status: Affect appropriate for circumstances HEENT: Sclerae anicteric. No mucositis or thrush. Skin: No rashes or petechiae. Lymph nodes: No cervical, supraclavicular, axillary, or inguinal adenopathy. Lungs: Clear to auscultation and percussion bilaterally No crackles, rhonchi or wheezes. Cardiovascular: Regular rate and rhythm. No gallops, murmurs, or rubs. Abdomen: Soft, nontender; no organomegaly or masses palpable. Extremities: No edema. No calf swelling or tenderness. No joint deformity. Neurologic: Alert, oriented X3, normal speech; no focal weakness or sensory abnormalities, no visual field deficits. Internal Med - H&P Results - Labs CBC & Chem 7: 11/27/17 04:07 11/27/17 04:07
[2017-11-27] MEDS ORDERED: Aspirin 325 MG TABLET PO ONE (08:14)
[2017-11-27] MEDS: Aspirin 81 MG TAB.CHEW PO SCH (09:46)
--- NOTE | 2017-11-27 17:33 | Neurology - Consult Note ---
Date of Encounter: 11/27/17 Time of Encounter: 17:30 Assessment and Plan (1) Vision changes Current Visit: Yes Status: Acute Although this gentleman does not have a prior history of migraine headaches his presentation seems almost classic for migraine headache without aura. He experienced a scintillating scotoma which lasted for several moments followed by a headache. The headache was not excruciating but a headache nonetheless. This syndrome is now completely resolved and he is back to his normal baseline. MRI scan of the brain was negative. However given his history of coronary artery disease I do feel compelled to obtain a CTA of the neck and brain to rule out transient ischemia. I do not feel compelled at this point repeat an echocardiogram. Stroke protocol orders should be implemented in the meantime particularly since he does have stroke risk factors. He is currently on aspirin as well as Plavix. He did have an isolated hypertensive reading at 180/ 90. Carotid duplex Doppler study was completed and only reveals nonstenotic plaquing. Further recommendations will be made pending the CTA result. History of Present Illness HPI: Mr. Martinez is a 57 year old male who is being seen for neurologic consultation secondary to acute visual changes followed by headache. He has no prior history of migraine headache. He states that last night he is had been up late watching a movie and after the movie and she decided to go to bed and East wanted to go play his guitar. He said the guitar and then identified a bright scintillating scotoma. He seemed to feel that it affected his left visual field primarily. He could not tell specifically whether not the phenomenon was monocular or binocular. He denied any numbness or weakness. He states he did have a little paresthesia on the corner of his left side of his mouth. However denied any speech difficulty denied confusion and denied any gait disturbances. He did experience what he describes a mild headache following this event. He denied any nausea associated denied vomiting. Today he feels back to his normal baseline. He is never experienced any phenomena such as this previously. Denies any family history of migraine headache. He does however have a history of coronary artery disease. Currently he is awake alert and oriented symptom-free was eating his supper and at the time I entered the room. He has had a recent cardiac catheterization and an echocardiogram was completed on 11/22/2017. Past Med Surg Social Fam HX - Past Medical History Medical history: coronary artery disease, GERD, hypertension Psychiatric history: anxiety, depression - Past Surgical History Surgical History: non-contributory, angioplasty/stent, appendectomy, herniorrhaphy - Social History Smoking Status: Former smoker Smokeless Tobacco Status: No Alcohol use: none Drug use: none - Family History Mother Living Status: Hx Family Cardiac Disorders: Yes (3-4 stents placed due to some blockage, placed late into her life) Hx Family Respiratory Disorders: No Hx Family Cancer: No Hx Family GI Disorders: No Hx Family Endocrine Disorder: No Hx Family Neuromuscular Disorders: No Hx Family Neurologic Disorders: No Hx Family HEENT Disorders: No Hx Family Autoimmune Disorders: No Father Living Status: Hx Family Cardiac Disorders: Yes ([place]) Hx Family Respiratory Disorders: No Hx Family Cancer: No Hx Family GI Disorders: Yes (Stomach issues) Hx Family Endocrine Disorder: No Hx Family Neuromuscular Disorders: No Hx Family Neurologic Disorders: No Hx Family HEENT Disorders: No Medications and Allergies amLODIPine [Norvasc] 2.5 mg PO DAILY 04/28/16 [History] Aspirin 81 mg PO DAILY 30 Days tab.chew 06/05/16 [Rx] Sildenafil Citrate [Viagra] 100 mg PO AD PRN 04/07/17 [History] Ubidecarenone [Co Q-10] 10 mg PO DAILY 04/07/17 [History] Zolpidem [Ambien] 10 mg PO HS 04/07/17 [History] DULoxetine [Cymbalta] 30 mg PO DAILY 11/21/17 [History] Ezetimibe 10 mg PO DAILY 11/21/17 [History] Pantoprazole Sodium [Protonix] 40 mg PO DAILY 11/21/17 [History] Clopidogrel [Plavix] 75 mg PO DAILY #30 tablet 11/23/17 [Rx] 3 Allergy/AdvReac Type Severity Reaction Status Date / Time chlorpheniramine AdvReac Hives Verified 11/27/17 11:15 [From Ornade] Nortriptyline [From Pamelor] AdvReac Palpitation Verified 11/27/17 11:15 s phenylpropanolamine AdvReac Hives Verified 11/27/17 11:15 [From Ornade] All Systems: A 10-system review of systems was performed and is negative for pertinent findings except as documented above in the HPI. Review of Systems: 10 point review of systems is consistent with history of present illness and otherwise negative. Physical Examination - Vital Signs Vital Signs: Initial Vital Signs Temp Pulse Resp BP Pulse Ox 98.8 F 66 20 180/96 100 11/27/17 03:08 11/27/17 03:08 11/27/17 03:08 11/27/17 03:08 11/27/17 03:08 - Neurologic Detailed motor examination: full strength in all major muscle groups Motor examination - right side: 5/5: deltoids, biceps, triceps, wrist flexion, wrist extension, intensive care ambulance paramedic, hip flexors, tibialis Anterior, quadriceps, toe extension (EHL), plantarflexion Motor examination - left side: 5/5: deltoids, biceps, triceps, wrist flexion, wrist extension, hip flexors, intensive care ambulance paramedic, quadriceps, tibialis Anterior, toe extension (EHL), plantarflexion Mental Status Examination: awake, alert, oriented to person, oriented to place, oriented to time, follows commands appropriately, answers questions appropriately, no agnosia, no aphasia, no aproxia Cranial nerve examination: PERRL, EOMI, visual morin intact, corneal reflexes brisk symmetrically, sensory to face intact, mastication intact, no facial asymmetry is present, no dysarthria, hearing is intact symmetrically, soft palate elevates bilaterally upon phonation, gag reflex intact, flexes SCM and trapezius muscles symmetrically with full power, tongue protrudes midline, no atrophy or facial fasiculations present Cerebellar examination: no dysmetria, performs finger to nose and heel to kaur symmetrically without ataxia, no gait ataxia, no truncal ataxia, no difficulty with rapid alternating movements Results - Laboratory Findings CBC and BMP: 11/27/17 04:07 11/27/17 04:07 Abnormal lab findings: Abnormal lab results APTT 36.2 Seconds (26.0-36.0) H 11/27/17 04:07 Consult Discharge Plan - Plan Referrals: Edilma Santana CNP [Primary Care Provider] -
[2017-11-28 08:40] VITALS: BP 150/97
[2017-11-28] MEDS: Aspirin 81 MG TAB.CHEW PO SCH (09:33)
--- NOTE | 2017-11-28 10:25 | Internal Med Progress Note ---
Date of Encounter: 11/28/17 Time of Encounter: 10:22 - Subjective Interval history: HPI: Physical exam: A/P: No high-grade stenosis or focal occlusion involving the intracranial or cervical vasculature. No evidence of dissection. No intracranial aneurysm. Mild atherosclerotic disease at the bilateral carotid bifurcation, without flow-limiting stenosis. Emphysema. - Constitutional Vitals: Temp Pulse Resp BP Pulse Ox 97.8 F 60 16 150/97 98 11/28/17 08:38 11/28/17 08:38 11/28/17 08:38 11/28/17 08:38 11/28/17 08:38 Internal Medicine: Result - Labs CBC & Chem 7: 11/27/17 04:07 11/27/17 04:07 - ABG Interpretation ABG results: PT/INR, D-dimer PT 11.4 Seconds (9.4-12.1) 11/27/17 04:07 - Impressions Impressions Brain MRI 11/27/17 07:32 IMPRESSION: No acute infarct, intracranial hemorrhage, or significant mass effect. D/ / Sarath Austin MD / Sarath Austin MD Interpreting Provider: Sarath Austin MD Head CTA 11/28/17 08:00 IMPRESSION: No high-grade stenosis or focal occlusion involving the intracranial or cervical vasculature. No evidence of dissection. No intracranial aneurysm. Mild atherosclerotic disease at the bilateral carotid bifurcation, without flow-limiting stenosis. Emphysema. D/ : / 11/28/2017 09:06:11 Sarath Austin MD / glen Interpreting Provider: Sarath Austin MD Neck CTA 11/28/17 08:00 IMPRESSION: No high-grade stenosis or focal occlusion involving the intracranial or cervical vasculature. No evidence of dissection. No intracranial aneurysm. Mild atherosclerotic disease at the bilateral carotid bifurcation, without flow-limiting stenosis. Emphysema. D/ / 11/28/2017 09:06:11 Sarath Austin MD / glen Interpreting Provider: Sarath Austin MD Consult Discharge Plan - Plan Referrals: Edilma Santana CNP [Primary Care Provider] -
--- NOTE | 2017-11-28 13:45 | Neurology Progress Note ---
Date of Encounter: 11/28/17 Time of Encounter: 13:43 Assessment and Plan (1) Vision changes Current Visit: Yes Status: Acute (2) Atypical migraine Current Visit: Yes Status: Acute I am convinced that Mr. Martinez experienced a migrainous type headache. He experienced what seems to be a classic visual aura consisting of a scintillating scotoma, followed shortly by a headache. The headache and has subsequently completely resolved without sequela. The CTA of the brain and neck was negative. I am not convinced of amaurosis fugax. He has had an echocardiogram on November 22 which was unremarkable. At this point I am not convinced we need to press on to do a NISA. I would simply have him follow-up with his primary care provider and cardiology team for his hypertension and coronary artery disease. You may discharge him at your discretion. Subjective Interval history: The chart was reviewed, the patient was seen and examined. He had an uneventful night. He denies any further headaches and denies any further visual changes or neurologic symptoms. He is anxious to be discharged home. He has no further complaints. He is hypertensive at 157/90 but denies any symptoms. Objective - Constitutional Vitals: Temp Pulse Resp BP Pulse Ox 97.8 F 60 16 150/97 98 11/28/17 08:38 11/28/17 08:38 11/28/17 08:38 11/28/17 08:38 11/28/17 08:38 - Neurological Exam Motor Examination: Present: full strength in all major muscle groups Motor examination - right side: 5/5: deltoids, biceps, triceps, wrist flexion, wrist extension, agriculturist, hip flexors, tibialis Anterior, quadriceps, toe extension (EHL), plantarflexion Motor examination - left side: 5/5: deltoids, biceps, triceps, wrist flexion, wrist extension, hip flexors, agriculturist, quadriceps, tibialis Anterior, toe extension (EHL), plantarflexion Mental Status Examination: Present: awake, alert, oriented to person, oriented to place, oriented to time, follows commands appropriately, answers questions appropriately, no agnosia, no aphasia, no aproxia Cranial nerve examination: Present: PERRL, EOMI, visual morin intact, corneal reflexes brisk symmetrically, sensory to face intact, mastication intact, no facial asymmetry is present, no dysarthria, hearing is intact symmetrically, soft palate elevates bilaterally upon phonation, gag reflex intact, flexes SCM and trapezius muscles symmetrically with full power, tongue protrudes midline, no atrophy or facial fasiculations present Cerebellar examination: Present: no dysmetria, performs finger to nose and heel to kaur symmetrically without ataxia, no gait ataxia, no truncal ataxia, no difficulty with rapid alternating movements Results - Laboratory Findings CBC and BMP: 11/27/17 04:07 11/27/17 04:07 Abnormal lab findings: Abnormal lab results APTT 36.2 Seconds (26.0-36.0) H 11/27/17 04:07 Consult Discharge Plan - Plan Referrals: Edilma Santana FINANCE SPECIALIST [Primary Care Provider] -
--- NOTE | 2017-11-28 13:57 | Discharge Summary ---
Date of Encounter: 11/28/17 Time of Encounter: 13:54 - Discharge Medications Home Medications: amLODIPine [Norvasc] 2.5 mg PO DAILY 04/28/16 [History] Aspirin 81 mg PO DAILY 30 Days tab.chew 06/05/16 [Rx] Sildenafil Citrate [Viagra] 100 mg PO AD PRN 04/07/17 [History] Ubidecarenone [Co Q-10] 10 mg PO DAILY 04/07/17 [History] Zolpidem [Ambien] 10 mg PO HS 04/07/17 [History] DULoxetine [Cymbalta] 30 mg PO DAILY 11/21/17 [History] Ezetimibe 10 mg PO DAILY 11/21/17 [History] Pantoprazole Sodium [Protonix] 40 mg PO DAILY 11/21/17 [History] Clopidogrel [Plavix] 75 mg PO DAILY #30 tablet 11/23/17 [Rx] Allergies/Adverse Reactions: 3 Allergy/AdvReac Type Severity Reaction Status Date / Time chlorpheniramine AdvReac Hives Verified 11/27/17 11:15 [From Ornade] Nortriptyline [From Pamelor] AdvReac Palpitation Verified 11/27/17 11:15 s phenylpropanolamine AdvReac Hives Verified 11/27/17 11:15 [From Ornade] Procedures/tests Complete & Pending: Procedures Performed prior 72 hours Category Date Time Status CT angio head [CT] Routine Cat Scan 11/28/17 08:[address] angio neck [CT] Routine Cat Scan 11/28/17 08:00 Draft MR head/brain wo con [MR] Stat MRI 11/27/17 07:32 Completed EV carotid duplex imaging BI Routine Y 11/27/17 07:33 Completed Date of admission: 11/27/17 05:53 Primary care physician: Edilma Santana CNP Consults: 11/27/17 07:58 Consult to Occupational Therapy [CONS] Routine Comment: Evaluate, develop and implement POC Reason for Consult: stroke Consult to Physical Therapy [CONS] Routine Comment: Evaluate, develop and implement POC Reason for Consult: stroke 11/27/17 10:51 Consult to Neurology [CONS] Routine Consulting Provider: Neurology [facility] Reason for Consult: Amaurosis fugax, TIA Call Completed: Yes Discharging clinician: Ridge Teixeira - Patient Status Disposition: Home, Self-Care Condition: Good - Discharge Instructions Instructions: Chronic Hypertension (DC) Follow Up With: Edilma Santana CNP [Primary Care Provider] - Hospital course: Physical Exam: General: Alert and oriented, well appearing. Mental Status: Affect appropriate for circumstances HEENT: Sclerae anicteric. No mucositis or thrush. Skin: No rashes or petechiae. Lymph nodes: No cervical, supraclavicular, axillary, or inguinal adenopathy. Lungs: Clear to auscultation and percussion bilaterally No crackles, rhonchi or wheezes. Cardiovascular: Regular rate and rhythm. No gallops, murmurs, or rubs. Abdomen: Soft, nontender; no organomegaly or masses palpable. Extremities: No edema. No calf swelling or tenderness. No joint deformity. Neurologic: Alert, oriented X3, normal speech; no focal weakness or sensory abnormalities, no visual field deficits. CT Head: unremarkable MRI brain: Recent echocardiogram on the 22 of November is unremarkable EKG sinus rhythm Final diagnosis and plan: (1) Atypical migraine Neurology feels he has experienced a migrainous type headache. He experienced what seems to be a classic visual aura consisting of a scintillating scotoma, followed shortly by a headache. The headache and has subsequently completely resolved without sequela. The CTA of the brain and neck was negative. I am not convinced of amaurosis fugax. He has had an echocardiogram on November 22 which was unremarkable. Neurology is also not convinced he needs a NISA. Follow- up with his primary care provider and cardiology team for his hypertension and coronary artery disease. Suspected TIA: Not likely per neurology (2) Hypertension Home medications continued. (3) Dyslipidemia Intolerance to statins. Continue current ezetimibe Hospital Course: 57 year old male patient with acute visual changes followed by a headache and initially admitted for a TIA workup. He was up late watching a movie and after the movie and decided to play his guitar. He suddenly experienced a bright scintillating scotoma which affected his left visual field primarily. He could not tell specifically whether not the phenomenon was monocular or binocular. He denied any numbness or weakness. He states he did have a little paresthesia on the corner of his left side of his mouth. However denied any speech difficulty denied confusion and denied any gait disturbances. He did experience what he describes a mild headache following this event. He denied any nausea associated denied vomiting. Today he feels back to his normal baseline. He is never experienced any phenomena such as this previously. Denies any family history of migraine headache. He does however have a history of coronary artery disease. By the time of admission he was awake alert and oriented symptom-free. His neuroimaging was negative and his symptoms resolved. Neurolgy felt he had a migraine with visual changes. He was discharge to home and will require f/u after discharge. Time spent discussing smoking cessation with patient: more than 10 minutes - Time Spent with Patient Total time spent providing and/or coordinating discharge services: - Constitutional Vitals: Temp Pulse Resp BP Pulse Ox 97.8 F 60 16 150/97 98 11/28/17 08:38 11/28/17 08:38 11/28/17 08:38 11/28/17 08:38 11/28/17 08:38
--- NOTE | 2017-11-30 16:57 | Electrocardiograph Report ---
[address] [address] Test Date: 2017-11-27 Pat Name: Ildefonso Martinez Department: 104 Room: 2NE29 Gender: M [employer]: EKP : 1960 Requested By: Jonathon Araya Order Number: [id number] Reading MD: Kit Ramos Measurements Intervals [place] Rate: 51 P: 20 IL: 198 QRS: -5 QRSD: 89 T: 30 QT: 411 QTc: 388 Interpretive Statements SINUS BRADYCARDIA Electronically Signed On 11-30-2017 16:55:49 EST by Kit Ramos
== END 2017-11-28 15:50 | disposition home or self-care (01) ==
LOC: 2NENU 03:07 → EMEROO 03:07 → 2NENU 06:15
PROVIDERS: ADMIT Internal Medicine; ATTEND Internal Medicine

== ENCOUNTER 2021-06-24 19:11 | Inpatient (IN) ==
[2021-06-24] MEDS ORDERED: *HR* FentaNYL (PF) 100 MCG/2 ML VIAL ONE ×3 (19:16→20:28)
[2021-06-24] MEDS ORDERED: *HR* Heparin 5,000 UNIT/ML VIAL IVP ONE (19:21)
[2021-06-24] MEDS ORDERED: *HR* Heparin 5,000 UNIT/ML VIAL IVP PRN ×2 (19:21)
[2021-06-24] MEDS ORDERED: Heparin 25,000UNIT/250ML 1/2NS 25,000 UNIT/250 ML IV.SOLN IVC SCH (19:30)
[2021-06-24] MEDS ORDERED: 0.9 % Sodium Chloride 1,000 ML ONE (19:34)
[2021-06-24] MEDS ORDERED: *HR* Midazolam HCl 2 MG/2 ML VIAL ONE ×2 (19:34→20:28)
[2021-06-24 19:35] LABS: Basophils # 0.1 K/mcL (0.0-0.2); Basophils % 0.5 %; Eosinophils # 0.1 K/mcL (0.0-0.6); Eosinophils % 0.7 %; Hemoglobin 15.5 g/dL (12.9-16.9); Immature Granulocytes % 0.5 % (0-4); Lymphocytes # 3.7 K/mcL (0.6-4.6); Lymphocytes % 35.3 %; Mean Corpuscular HGB Conc 34.4 g/dL (31.6-35.5); Mean Corpuscular Hemoglobin 31.7 pg (28.0-33.3); Mean Platelet Volume 9.9 fL (9.4-12.4); Monocytes # 1.1 K/mcL (0.0-1.3); Monocytes % 10.2 %; Neutrophils # 5.5 K/mcL (1.6-8.9); Platelet Count 290 K/mcL (140-400); Red Blood Count 4.89 M/mcL (4.19-5.50); Red Cell Distribution Width 12.4 % (11.5-14.5); Segmented Neutrophils % 52.8 %; White Blood Count 10.3 K/mcL (4.3-11.1)
[2021-06-24] MEDS ORDERED: Heparin 1,000 UNITS/500 mL 500 ML ONE (19:35)
[2021-06-24] MEDS ORDERED: *HR* Atropine Sulfate 1 MG/10 ML SYRINGE ONE (19:35)
[2021-06-24] MEDS ORDERED: *HR* Heparin 10,000 UNIT/10 ML VIAL ONE (19:35)
[2021-06-24] MEDS ORDERED: ISOVUE-370 200 ML INFUS..BTL ONE ×2 (19:35→20:48)
[2021-06-24] MEDS ORDERED: Nitroglycerin 1,000 MCG/5 ML VIAL IV ONE (19:35)
[2021-06-24 19:42] LABS: Heparin anti-factor XA UFH < 0.04 IU/mL (0.30-0.70)
[2021-06-24 19:43] LABS: Prothrombin Time 12.1 Seconds (9.4-12.1)
[2021-06-24 19:45] LABS: D-Dimer 735 ng/mLFEU (0-500)
[2021-06-24] MEDS ORDERED: Heparin 25,000UNIT/250ML 1/2NS 25,000 UNIT/250 ML IV.SOLN ONE (19:47)
[2021-06-24 20:10] LABS: Alanine Aminotransferase 26 Units/L (7-52); Albumin 4.6 g/dL (3.5-5.7); Albumin/Globulin Ratio 1.6 (1.1-2.2); Alkaline Phosphatase 72 Units/L (34-104); Aspartate Amino Transferase 28 Units/L (13-39); BUN/Creatinine Ratio 15 (6-26); Bilirubin,Total 0.9 mg/dL (0.3-1.0); Blood Urea Nitrogen 17 mg/dL (8-23); Calcium 9.9 mg/dL (8.6-10.3); Carbon Dioxide 22 mEq/L (23-29); Chloride 103 mEq/L (98-107); Globulin 2.8 g/dL (2.4-3.5); Glucose 117 mg/dL (70-105); Osmolality,Calculated 287 (280-300); Potassium 3.4 mEq/L (3.5-5.1); Sodium 137 mEq/L (136-145); Total Protein 7.4 g/dL (6.4-8.9); eGFR For African Americans > 60 (> 60); eGFR For Non-African Americans > 60 (> 60)
[2021-06-24 20:17] LABS: Troponin I < 0.03 ng/mL (< 0.04)
[2021-06-24] MEDS ORDERED: *HR* Ticagrelor 90 MG TABLET PO ONE (21:25)
[2021-06-24] MEDS ORDERED: Naloxone 0.4 MG/ML INJ IVP PRN (21:25)
[2021-06-24] MEDS ORDERED: Perflutren Lipid Microsphere 1.3 ML in 0.9 % Sodium Chloride 8.7 ML IVP PRN (21:25)
[2021-06-24] MEDS ORDERED: *HR* Ticagrelor 90 MG TABLET ONE (22:47)
[2021-06-24 23:24] LABS: Estimated Average Glucose 123 mg/dl; Hemoglobin A1C 5.9 %
[2021-06-25 06:36] LABS: Basophils % 0.5 %; Eosinophils # 0.1 K/mcL (0.0-0.6); Eosinophils % 0.9 %; Hematocrit 40.5 % (37.5-50.1); Immature Granulocytes % 0.3 % (0-4); Lymphocytes # 2.7 K/mcL (0.6-4.6); Lymphocytes % 36.1 %; Mean Corpuscular HGB Conc 34.6 g/dL (31.6-35.5); Mean Corpuscular Hemoglobin 32.1 pg (28.0-33.3); Mean Corpuscular Volume 92.9 fL (83.0-100.0); Mean Platelet Volume 9.8 fL (9.4-12.4); Monocytes # 0.9 K/mcL (0.0-1.3); Monocytes % 11.4 %; Neutrophils # 3.8 K/mcL (1.6-8.9); Platelet Count 255 K/mcL (140-400); Red Blood Count 4.36 M/mcL (4.19-5.50); Red Cell Distribution Width 12.5 % (11.5-14.5); Segmented Neutrophils % 50.8 %; White Blood Count 7.5 K/mcL (4.3-11.1)
[2021-06-25 07:04] LABS: BUN/Creatinine Ratio 15 (6-26); Blood Urea Nitrogen 15 mg/dL (8-23); Calcium 8.8 mg/dL (8.6-10.3); Carbon Dioxide 26 mEq/L (23-29); Chloride 106 mEq/L (98-107); Chol/HDL Ratio 5.9 (0-4.9); Cholesterol 170 mg/dL (< 200); Glucose 141 mg/dL (70-105); HDL Cholesterol 29 mg/dL (40-59); LDL Cholesterol,Calculated 107 mg/dL (< 100); Osmolality,Calculated 291 (280-300); Potassium 3.5 mEq/L (3.5-5.1); Sodium 139 mEq/L (136-145); Triglycerides 169 mg/dL (< 150); eGFR For African Americans > 60 (> 60); eGFR For Non-African Americans > 60 (> 60)
[2021-06-25] MEDS ORDERED: Aspirin 81 MG TAB.CHEW PO SCH (09:00)
[2021-06-25] MEDS ORDERED: *HR* Ticagrelor 90 MG TABLET PO SCH (09:00)
[2021-06-25] MEDS ORDERED: Naloxone 0.4 MG/ML INJ IVP PRN (11:58)
[2021-06-25] MEDS ORDERED: Perflutren Lipid Microsphere 1.3 ML in 0.9 % Sodium Chloride 8.7 ML IVP PRN ×2 (11:58→14:14)
[2021-06-25] MEDS ORDERED: Loratadine 10 MG TABLET PO PRN (11:58)
[2021-06-25] MEDS: *HR* Heparin 5,000 UNIT/ML VIAL SQ SCH (17:32)
[2021-06-25] MEDS ORDERED: *HR* Heparin 5,000 UNIT/ML VIAL SQ SCH (18:00)
[2021-06-25] MEDS: *HR* Ticagrelor 90 MG TABLET PO SCH (21:16)
[2021-06-26 03:22] VITALS: TEMP 98
[2021-06-26] MEDS: *HR* Heparin 5,000 UNIT/ML VIAL SQ SCH (05:16)
[2021-06-26] MEDS: *HR* Ticagrelor 90 MG TABLET PO SCH (07:34)
[2021-06-26] MEDS ORDERED: Aspirin 81 MG TAB.CHEW PO SCH (09:00)
[2021-06-26] MEDS ORDERED: carvediloL 6.25 MG TABLET PO SCH (09:00)
[2021-06-26 11:39] VITALS: O2SAT 99
[2021-06-26 14:58] VITALS: BP 162/99; PULSE 69
== END 2021-06-26 16:53 | disposition home or self-care (01) | DRG 247 ==
LOC: EMEROOARM 19:11 → 2NNU 19:55 → ICNU 21:36 → 2NNU 21:50
PROVIDERS: ADMIT Internal Medicine; ATTEND Internal Medicine

== ENCOUNTER 2021-08-28 09:50 | Observation (INO) ==
[2021-08-28 10:18] LABS: Basophils % 0.6 %; Eosinophils # 0.1 K/mcL (0.0-0.6); Eosinophils % 1.5 %; Hematocrit 46.6 % (37.5-50.1); Hemoglobin 15.8 g/dL (12.9-16.9); Immature Granulocytes % 0.2 % (0-4); Lymphocytes # 2.8 K/mcL (0.6-4.6); Lymphocytes % 42.9 %; Mean Corpuscular HGB Conc 33.9 g/dL (31.6-35.5); Mean Corpuscular Volume 94.5 fL (83.0-100.0); Mean Platelet Volume 9.7 fL (9.4-12.4); Monocytes # 0.7 K/mcL (0.0-1.3); Monocytes % 11.3 %; Neutrophils # 2.9 K/mcL (1.6-8.9); Platelet Count 251 K/mcL (140-400); Red Blood Count 4.93 M/mcL (4.19-5.50); Red Cell Distribution Width 12.5 % (11.5-14.5); Segmented Neutrophils % 43.5 %; White Blood Count 6.6 K/mcL (4.3-11.1)
[2021-08-28 11:00] LABS: BUN/Creatinine Ratio 14 (6-26); Blood Urea Nitrogen 14 mg/dL (8-23); Calcium 9.1 mg/dL (8.6-10.3); Carbon Dioxide 25 mEq/L (23-29); Chloride 105 mEq/L (98-107); Glucose 110 mg/dL (70-105); Osmolality,Calculated 285 (280-300); Potassium 3.9 mEq/L (3.5-5.1); Sodium 137 mEq/L (136-145); Troponin I < 0.03 ng/mL (< 0.04); eGFR For African Americans > 60 (> 60); eGFR For Non-African Americans > 60 (> 60)
[2021-08-28] MEDS ORDERED: Ondansetron 4 MG/2 ML VIAL IVP PRN (11:30)
[2021-08-28] MEDS ORDERED: Naloxone 0.4 MG/ML INJ IVP PRN (11:30)
[2021-08-28] MEDS: amLODIPine 5 MG TABLET PO SCH (14:13)
[2021-08-28] MEDS ORDERED: Perflutren Lipid Microsphere 1.3 ML in 0.9 % Sodium Chloride 8.7 ML IVP PRN (14:33)
[2021-08-28] MEDS: *HR* Heparin 5,000 UNIT/ML VIAL SQ SCH (20:19)
[2021-08-28] MEDS: Ranolazine 500 MG TAB.ER.12H PO SCH (20:19)
[2021-08-28] MEDS: *HR* Ticagrelor 90 MG TABLET PO SCH (20:19)
[2021-08-29 03:56] LABS: Basophils % 0.6 %; Eosinophils # 0.1 K/mcL (0.0-0.6); Eosinophils % 1.5 %; Hematocrit 43.4 % (37.5-50.1); Hemoglobin 14.8 g/dL (12.9-16.9); Immature Granulocytes % 0.3 % (0-4); Lymphocytes # 3.3 K/mcL (0.6-4.6); Lymphocytes % 45.5 %; Mean Corpuscular HGB Conc 34.1 g/dL (31.6-35.5); Mean Corpuscular Hemoglobin 31.6 pg (28.0-33.3); Mean Corpuscular Volume 92.7 fL (83.0-100.0); Mean Platelet Volume 9.9 fL (9.4-12.4); Monocytes # 0.7 K/mcL (0.0-1.3); Monocytes % 10.2 %; Platelet Count 239 K/mcL (140-400); Red Blood Count 4.68 M/mcL (4.19-5.50); Red Cell Distribution Width 12.4 % (11.5-14.5); Segmented Neutrophils % 41.9 %; White Blood Count 7.3 K/mcL (4.3-11.1)
[2021-08-29 04:16] LABS: BUN/Creatinine Ratio 15 (6-26); Blood Urea Nitrogen 16 mg/dL (8-23); Carbon Dioxide 23 mEq/L (23-29); Chloride 107 mEq/L (98-107); Glucose 97 mg/dL (70-105); Osmolality,Calculated 287 (280-300); Potassium 3.6 mEq/L (3.5-5.1); Sodium 138 mEq/L (136-145); eGFR For African Americans > 60 (> 60); eGFR For Non-African Americans > 60 (> 60)
[2021-08-29] MEDS: *HR* Heparin 5,000 UNIT/ML VIAL SQ SCH ×2 (05:54→14:32)
[2021-08-29 07:43] VITALS: O2SAT 98
[2021-08-29] MEDS: *HR* Ticagrelor 90 MG TABLET PO SCH (08:47)
[2021-08-29] MEDS: amLODIPine 5 MG TABLET PO SCH (08:47)
[2021-08-29] MEDS: Ranolazine 500 MG TAB.ER.12H PO SCH (08:47)
[2021-08-29] MEDS ORDERED: Aspirin 81 MG TAB.CHEW PO SCH (09:00)
[2021-08-29] MEDS ORDERED: NON-FORMULARY MEDICATION 1 EACH EACH (Omega-3/Dha/Epa/Fish Oil [Fish Oil 1,000 Mg Softgel] PO SCH (09:00)
[2021-08-29 11:50] VITALS: BP 133/85; PULSE 59; TEMP 97.9
== END 2021-08-29 16:00 | disposition home or self-care (01) ==
LOC: EMEROOARM 09:50 → 3BNU 09:50 → SUATTDRO 11:33 → 3BNU 12:32
PROVIDERS: ADMIT Family Medicine; ATTEND Internal Medicine

== ENCOUNTER 2022-04-16 11:10 | Observation (INO) ==
[2022-04-16] MEDS ORDERED: Nitroglycerin 1 INCH/GM PACKET TP ONE (11:31)
[2022-04-16 11:45] LABS: Basophils % 0.4 %; Eosinophils % 0.6 %; Hematocrit 37.6 % (37.5-50.1); Hemoglobin 12.7 g/dL (12.9-16.9); Immature Granulocytes % 0.4 % (0-4); Lymphocytes # 2.7 K/mcL (0.6-4.6); Lymphocytes % 39.2 %; Mean Corpuscular HGB Conc 33.8 g/dL (31.6-35.5); Mean Corpuscular Hemoglobin 33.1 pg (28.0-33.3); Mean Corpuscular Volume 97.9 fL (83.0-100.0); Mean Platelet Volume 10.2 fL (9.4-12.4); Monocytes # 0.7 K/mcL (0.0-1.3); Monocytes % 10.6 %; Neutrophils # 3.3 K/mcL (1.6-8.9); Platelet Count 218 K/mcL (140-400); Red Blood Count 3.84 M/mcL (4.19-5.50); Red Cell Distribution Width 12.8 % (11.5-14.5); Segmented Neutrophils % 48.8 %; White Blood Count 6.9 K/mcL (4.3-11.1)
[2022-04-16 12:07] LABS: BUN/Creatinine Ratio 15 (6-26); Blood Urea Nitrogen 15 mg/dL (8-23); Calcium 8.4 mg/dL (8.6-10.3); Carbon Dioxide 22 mEq/L (23-29); Chloride 107 mEq/L (98-107); Glucose 118 mg/dL (70-105); Osmolality,Calculated 284 (280-300); Potassium 3.6 mEq/L (3.5-5.1); Sodium 136 mEq/L (136-145); Troponin I < 0.03 ng/mL (< 0.04); eGFR For African Americans > 60 (> 60); eGFR For Non-African Americans > 60 (> 60)
[2022-04-16] MEDS ORDERED: *HR* Heparin 5,000 UNIT/ML VIAL IVP ONE (12:51)
[2022-04-16] MEDS ORDERED: *HR* Heparin 5,000 UNIT/ML VIAL IVP PRN ×2 (12:51)
[2022-04-16] MEDS ORDERED: Heparin 25,000UNIT/250ML 1/2NS 25,000 UNIT/250 ML IV.SOLN IVC SCH (13:00)
[2022-04-16 13:32] LABS: Heparin anti-factor XA UFH < 0.04 IU/mL (0.30-0.70); INR 1.1; Prothrombin Time 11.8 Seconds (9.4-12.1)
[2022-04-16 13:34] LABS: Activated Partial Thrombo Time 38.8 Seconds (26.0-36.0)
[2022-04-16] MEDS ORDERED: Nitroglycerin 0.4 MG TAB.SUBL SL PRN (13:45)
[2022-04-16] MEDS ORDERED: Naloxone 0.4 MG/ML INJ IVP PRN (13:56)
[2022-04-16] MEDS ORDERED: Ondansetron 4 MG/2 ML VIAL IVP PRN (14:01)
[2022-04-16] MEDS ORDERED: Melatonin 3 MG TABLET PO PRN (14:01)
[2022-04-16] MEDS ORDERED: Acetaminophen 325 MG TABLET PO PRN (14:01)
[2022-04-16] MEDS: Ranolazine 500 MG TAB.ER.12H PO SCH (21:43)
[2022-04-16] MEDS: *HR* Ticagrelor 90 MG TABLET PO SCH (21:44)
[2022-04-17 01:45] LABS: Hematocrit 41.2 % (37.5-50.1); Hemoglobin 13.7 g/dL (12.9-16.9); Mean Corpuscular HGB Conc 33.3 g/dL (31.6-35.5); Mean Corpuscular Hemoglobin 32.4 pg (28.0-33.3); Mean Corpuscular Volume 97.4 fL (83.0-100.0); Mean Platelet Volume 10.2 fL (9.4-12.4); Platelet Count 223 K/mcL (140-400); Red Blood Count 4.23 M/mcL (4.19-5.50); Red Cell Distribution Width 12.7 % (11.5-14.5); White Blood Count 9.3 K/mcL (4.3-11.1)
[2022-04-17 02:14] LABS: BUN/Creatinine Ratio 11 (6-26); Blood Urea Nitrogen 11 mg/dL (8-23); Calcium 8.8 mg/dL (8.6-10.3); Carbon Dioxide 24 mEq/L (23-29); Chloride 107 mEq/L (98-107); Glucose 93 mg/dL (70-105); Magnesium 1.8 mg/dL (1.6-2.6); Osmolality,Calculated 287 (280-300); Potassium 3.7 mEq/L (3.5-5.1); Sodium 139 mEq/L (136-145); Troponin I < 0.03 ng/mL (< 0.04); eGFR For African Americans > 60 (> 60); eGFR For Non-African Americans > 60 (> 60)
[2022-04-17] MEDS ORDERED: amLODIPine 5 MG TABLET PO SCH (09:00)
[2022-04-17] MEDS ORDERED: Aspirin 81 MG TAB.CHEW PO SCH (09:00)
[2022-04-17] MEDS: *HR* Ticagrelor 90 MG TABLET PO SCH ×2 (10:02→13:08)
[2022-04-17] MEDS: Ranolazine 500 MG TAB.ER.12H PO SCH (10:03)
[2022-04-17] MEDS ORDERED: Nitroglycerin 1,000 MCG/5 ML VIAL IV ONE (13:04)
[2022-04-17] MEDS ORDERED: 0.9 % Sodium Chloride 2,000 ML ONE (13:04)
[2022-04-17] MEDS ORDERED: Iopamidol - 370 200 ML INFUS..BTL ONE (13:04)
[2022-04-17] MEDS ORDERED: Heparin 1,000 UNITS/500 mL 500 ML ONE (13:04)
[2022-04-17] MEDS ORDERED: *HR* Heparin 10,000 UNIT/10 ML VIAL ONE (13:04)
[2022-04-17] MEDS ORDERED: *HR* FentaNYL (PF) 100 MCG/2 ML VIAL ONE (13:23)
[2022-04-17] MEDS ORDERED: *HR* Midazolam HCl 2 MG/2 ML VIAL ONE (13:23)
[2022-04-17] MEDS ORDERED: Isosorbide MONOnitrate (24 HR) 60 MG TAB.ER.24H PO SCH (14:30)
[2022-04-17 14:34] VITALS: BP 132/73; PULSE 62; TEMP 98; O2SAT 96
[2022-04-17] MEDS ORDERED: Ranolazine 500 MG TAB.ER.12H PO SCH (21:00)
[2022-04-18] MEDS ORDERED: amLODIPine 5 MG TABLET PO SCH (09:00)
== END 2022-04-17 16:38 | disposition home or self-care (01) ==
LOC: EMEROOARM 11:10 → 3ANU 15:22 → INTOOBSV 15:22 → 3ANU 16:30
PROVIDERS: ADMIT Student in an Organized Health Care Education/Training Program; ATTEND Student in an Organized Health Care Education/Training Program